=== PATIENT | female | born 1965 | race Caucasian/White ===

== ENCOUNTER 2017-11-30 18:56 | Emergency (ER) | payer OTHER ==
[2017-11-30 19:37] VITALS: TEMP 98.3; BMI 51.5
[2017-11-30 19:45] LABS: PH,URINE 6.5 (4.5-8); URINE APPEARANCE Clear; URINE BILIRUBIN Negative (NEGATIVE); URINE BLOOD Negative (NEGATIVE); URINE GLUCOSE (UA) Negative (NEGATIVE); URINE KETONE Negative (NEGATIVE); URINE LEUK ESTERASE Negative (NEGATIVE); URINE NITRITE Negative (NEGATIVE); URINE PROTEIN Negative (NEGATIVE); URINE UROBILINOGEN 0.2 (0.2-1.0)
[2017-11-30 19:47] LABS: HCG,QUALITATIVE URINE NEGATIVE; URINE COLOR YELLOW
[2017-11-30 19:58] LABS: BASO % 1.6 % (0-2.0); EOS % 0.3 % (0-4.5); HEMATOCRIT 44.3 % (32.4-45.2); HEMOGLOBIN 15.5 GM/dl (10.7-15.3); LYMPH % 24.7 % (8-40); MCH 29.5 pg (25.7-33.7); MCHC 34.9 g/dl (32.0-36.0); MEAN CELL VOLUME 84.4 fl (80-96); MEAN PLT VOLUME 7.9 fl (7.5-11.1); MONO % 6.4 % (3.8-10.2); PLATELET COUNT 290 K/MM3 (134-434); RBC 5.24 M/mm3 (3.60-5.2); RDW 12.6 % (11.6-15.6); WHITE BLOOD COUNT 7.7 K/mm3 (4.0-10.8)
[2017-11-30 20:06] LABS: ACTIVATED PTT 29.3 SECONDS (24.0-38.9)
[2017-11-30 20:10] LABS: ALBUMIN 3.8 g/dl (3.5-5.0); ALK PHOS 62 U/L (32-92); ANION GAP 5 (8-16); BILIRUBIN,TOTAL 0.8 mg/dl (0.2-1.0); BLOOD UREA NITROGEN 6 mg/dl (7-18); CALCIUM 8.7 mg/dl (8.4-10.2); CHLORIDE 102 mmol/L (98-107); CO2 27 mmol/L (22-28); CREATININE 0.8 mg/dl (0.6-1.3); GLUCOSE,RANDOM 121 mg/dl (74-106); POTASSIUM 3.7 mmol/L (3.5-5.1); SGOT/AST 21 U/L (10-42); SGPT/ALT 16 U/L (10-40); SODIUM 134 mmol/L (136-145); TOT PROT 6.9 g/dl (6.4-8.3)
[2017-11-30 20:11] LABS: INR 1.06 (0.82-1.09); PROTHROMBIN TIME (PATIENT) 11.9 SEC (10.2-13.0)
--- NOTE | 2017-11-30 22:42 | PDOC ---
History of Present Illness - General Chief Complaint: Shortness of Breath Stated Complaint: SENT BY PMD ELEVATED DIMER Time Seen by Provider: 11/30/17 19:19 - History of Present Illness Initial Comments: 11/30/17 22:35 "Patient is a year old female with PMHx of fibromyalgia, diverticulosis, ? autoimmune issue, back problems (accident 10 years ago), who presents from her PCP for an elevated d-dimer. Patient reports a plethora of symptoms for the past 2-3 weeks. She states that she first developed a dry cough. She also reports associated chest tightness. Pt also measured a fever of 101 at home. She states that her symptoms come and go. Pt endorses chronic bilateral leg swelling but denies any new asymmetric swelling. Yesterday she saw her doctor who did an EKG which came back normal, some blood tests and was scheduled for a CT chest later in the week. Today, her doctor told her to go to the nearest ER due to her elevated d-dimer results. She denies recent travel, long car/plane rides. Denies OCP use. Denies h/o DVT/ PE. Allerigies: Levaquin, Quinolones. " Past History - Past Medical History Allergies/Adverse Reactions: Allergies Allergy/AdvReac Type Severity Reaction Status Date / Time levofloxacin [From Levaquin] Allergy Verified 11/30/17 19:14 Quinolones Allergy Verified 11/30/17 19:14 Home Medications: Ambulatory Orders Tapentadol Hydrochloride [Nucynta -] 100 mg PO TID 07/17/14 Cetirizine HCl [Zyrtec -] 10 mg PO DAILY 11/30/17 Montelukast Sodium [Singulair] 4 mg PO DAILY 11/30/17 COPD: No GI Disorders: Yes (diverticulitis, acid reflux, PERF TO LARGE INTESTINE) Other medical history: CHRONIC BACK PAIN - Surgical History Cholecystectomy: Yes Neurologic Surgery: Yes (back surgery) - Immunization History Immunization Up to Date: Yes - Suicide/Smoking/Psychosocial Hx Smoking Status: No Smoking History: Never smoked Have you smoked in the past 12 months: No If you are a former smoker, when did you quit?: 15 Information on smoking cessation initiated: No Hx Alcohol Use: No Drug/Substance Use Hx: No Substance Use Type: Alcohol Review of Systems - Review of Systems Comments:: 11/30/17 22:38 GENERAL/CONSTITUTIONAL: + fever, no chills. HEAD, EYES, EARS, NOSE AND THROAT: No change in vision. No ear pain or discharge. + sore throat .(from coughing) CARDIOVASCULAR: + chest pressure, no SOB RESPIRATORY: +cough, no wheezing, or hemoptysis. GASTROINTESTINAL: no vomiting, diarrhea or constipation. GENITOURINARY: No dysuria, frequency, or change in urination. MUSCULOSKELETAL: +BLE swelling. No joint or muscle swelling or pain. No neck or back pain. SKIN: No rash. NEUROLOGIC: No headache, no loss of consciousness, or change in strength/ sensation. ENDOCRINE: No increased thirst. No abnormal weight change. HEMATOLOGIC/LYMPHATIC: No anemia, easy bleeding, or history of blood clots. ALLERGIC/IMMUNOLOGIC: No hives or skin allergy. " *Physical Exam - Vital Signs Last Vital Signs Temp Pulse Resp BP Pulse Ox 98.3 F 108 H 18 134/82 97 11/30/17 19:27 11/30/17 19:27 11/30/17 19:27 11/30/17 19:27 11/30/17 19:27 - Physical Exam Comments: 11/30/17 22:38 "GENERAL: Awake, alert, and fully oriented, in no acute distress. HEAD: No signs of trauma EYES: PERRLA, EOMI, sclera anicteric, conjunctiva clear ENT: Auricles normal inspection, hearing grossly normal, nares patent, oropharynx clear without exudates. Moist mucosa NECK: Nontender, no stepoffs, Normal ROM, supple, no lymphadenopathy, JVD, or masses LUNGS: Breath sounds equal, clear to auscultation bilaterally. No wheezes, and no crackles HEART: Regular rate and rhythm, normal S1 and S2, no murmurs, rubs or gallops ABDOMEN: Soft, nontender, normoactive bowel sounds. No guarding, no rebound. No masses EXTREMITIES: Normal range of motion, no edema. No clubbing or cyanosis. No cords, erythema, or tenderness NEUROLOGICAL: Cranial nerves II through XII intact. 5/5 strength and sensation in all extremities, Normal speech, normal gait, normal cerebellar function SKIN: Warm, Dry, normal turgor, no rashes or lesions noted. " Heart Score/ECG Review - History History: Slightly suspicious - Electrocardiogram EKG: Normal - Age Age: 45-65 - Risk Factors Risk Factors Heart Score: Yes Hx Obesity Based on the list above the patient has:: 1-2 risk factors - Troponin Troponin: </= normal limit - Score Heart Score - Total: 2 - ECG Impressions Comment:: 11/30/17 22:40 NSR, no CARLOS/STDs, no TWIs, axis wnl, intervals wnl, rate 97 ED Treatment Course - LABORATORY CBC & Chemistry Diagram: 11/30/17 19:27 11/30/17 19:27 - ADDITIONAL ORDERS Additional order review: Laboratory Results 11/30/17 11/30/17 11/30/17 19:40 19:40 19:27 PT with INR INR PTT (Actin FS) D-Dimer Sodium Potassium Chloride Carbon Dioxide Anion Gap BUN Creatinine Creat Clearance w eGFR Random Glucose Calcium Total Bilirubin AST ALT Alkaline Phosphatase Creatine Kinase 39 Troponin I < 0.03 Total Protein Albumin Urine Color Yellow Urine Appearance Clear Urine pH 6.5 Ur Specific [place] <= 1.005 Urine Protein Negative Urine Glucose (UA) Negative Urine Ketones Negative Urine Blood Negative Urine Nitrite Negative Urine Bilirubin Negative Urine Urobilinogen 0.2 Ur Leukocyte Esterase Negative Urine HCG, Qual Negative 11/30/17 11/30/17 11/30/17 19:27 19:27 19:27 PT with INR 11.9 INR 1.06 PTT (Actin FS) 29.3 D-Dimer 858 H Sodium 134 L Potassium 3.7 Chloride 102 Carbon Dioxide 27 Anion Gap 5 L BUN 6 L Creatinine 0.8 Creat Clearance w eGFR > 60 Random Glucose 121 H Calcium 8.7 Total Bilirubin 0.8 AST 21 ALT 16 Alkaline Phosphatase 62 Creatine Kinase Troponin I Total Protein 6.9 Albumin 3.8 Urine Color Urine Appearance Urine pH Ur Specific [place] Urine Protein Urine Glucose (UA) Urine Ketones Urine Blood Urine Nitrite Urine Bilirubin Urine Urobilinogen Ur Leukocyte Esterase Urine HCG, Qual 11/30/17 19:27 RBC 5.24 H MCV 84.4 MCHC 34.9 RDW 12.6 MPV 7.9 Neutrophils % 67.0 Lymphocytes % 24.7 Monocytes % 6.4 Eosinophils % 0.3 Basophils % 1.6 - RADIOLOGY Radiology Studies Ordered: Category Date Time Status CHEST CTA [CT] Stat CT Scan 11/30/17 19:38 Completed Medical Decision Making - Medical Decision Making 11/30/17 22:42 52 F with URI-like symptoms x 1 week. Presenting to ED for elevated outpt D dimer. Pt with no clinical signs of DVT. No risk factors for DVT. My suspicion is extremely low for PE. However, will obtain CTA given elevated D dimer. Will also r/o ACS given history of chest tightness. However, - Labs, trop - CTA chest 11/30/17 22:48 CTA negative for PE. Study was limited 2/2 pt's body habitus. However, pt does not clinically have signs of DVT and is low risk for PE. Pt is well appearing, with normal vitals. Clinically stable for DC at this time. I discussed the physical exam findings, ancillary test results and final diagnoses with the patient. I answered all of the patient's questions. The patient was satisfied with the care received and felt comfortable with the discharge plan and treatment plan. The patient agrees to follow up with the primary care physician within 24-72 hours. *DC/Admit/Observation/Transfer Diagnosis at time of Disposition: Cough - Discharge Dispostion Disposition: HOME - Referrals Referrals: Moris Her MD [Staff Physician] - - Patient Instructions Printed Discharge Instructions: DI for Viral Syndrome Additional Instructions: Please follow up with a chemical dependency nurse regarding your symptoms. Even though the labs and EKG were normal today, we cannot rule out all heart disease. You will need a stress test and an echo (ultrasound of your heart). See your primary doctor this week for a follow up appointment. Your CT scan today did not show a blood clot, but it did not completely evaluate all of the vessels in your lungs. If you experience worsening chest pain, shortness of breath, persistent or high fevers, or any other concerning symptoms, return to the ER immediately. Your CT scan today showed a nodule near your trachea. Please have your primary doctor follow up on this. Though it is most likely benign, if it changes in size it may represent a tumor or cancer. - Post Discharge Activity - Attestations Physician Attestion: 11/30/17 22:47 I, Dr. Aramis Boss MD, attest that this document has been prepared under my direction and personally reviewed by me in its entirety. I further attest, that it accurately reflects all work, treatment, procedures and medical decision -making performed by me.
[2017-11-30 22:50] VITALS: BP 131/73; PULSE 100
--- NOTE | 2017-12-01 10:37 | EKG ---
Test Reason : Blood Pressure : / mmHG Vent. Rate : 097 BPM Atrial Rate : 097 BPM P-R Int : 150 ms QRS Dur : 084 ms QT Int : 356 ms P-R-T Axes : 031 -24 004 degrees QTc Int : 452 ms NORMAL SINUS RHYTHM POSSIBLE LEFT ATRIAL ENLARGEMENT BORDERLINE ECG NO PREVIOUS ECGS AVAILABLE Confirmed by ABIEL BARRETO, ROSALIO ([id number]) on 12/01/2017 10:37:41 AM Referred By: DR ORELLANA Confirmed By:ROSALIO BEEBE MD
== END 2017-11-30 22:55 | disposition home or self-care (01) ==
LOC: FER 18:56
DX: R05 Cough (principal); K21.9 Gastro-esophageal reflux disease without esophagitis; K57.90 Diverticulosis of intestine, part unspecified, without perforation or abscess without bleeding; M79.7 Fibromyalgia; F17.210 Nicotine dependence, cigarettes, uncomplicated
CPT/HCPCS: 36415; 71275-TC; 80053; 81003; 82550; 84484; 84703; 85025; 85379; 85610; 85730; 93005; 99282-25

== ENCOUNTER 2019-09-30 01:44 | Inpatient (IN) | payer OTHER ==
--- NOTE | 2019-09-30 02:15 | PDOC ---
Attending Attestation - Resident Resident Name: Junior Carroll - ED Attending Attestation I have performed the following: I have examined & evaluated the patient, The case was reviewed & discussed with the resident, I agree w/resident's findings & plan - HPI HPI: 09/30/19 02:25 R flank pain began today Shes never had this before - Physicial Exam PE: 09/30/19 03:04 Pt has flank and suprapubic pain that began today She has never had a kidney stone, but her sibling has in the past, and kidney stones un in the family. - Medical Decision Making 09/30/19 03:06 Pt has no fever or chills. She will have labs; NSAIDS in the ER hydration reevaluation 09/30/19 06:21 Pt has a colitis and lymphadenopathy; she is allergic to levaquin and quinolones ; she will be treated with unasyn. We will start with a double dose, as she is > 260 lbs
--- NOTE | 2019-09-30 02:24 | PDOC ---
History of Present Illness - General Chief Complaint: Pain, Acute Stated Complaint: ABD PAIN Time Seen by Provider: 09/30/19 02:13 - History of Present Illness Initial Comments: Susie Fry is a 54 year old female with PMHx of fibromyalgia, diverticulosis, autoimmune issue, chronic back pain, presenting today with abdominal pain. Reports that the abdominal pain started at 8:30 this morning. Describes the pain as sharp and constant. Pain is in the right flank and "radiates all over." Reports nausea w/o vomiting. Denies fever/chills. Denies chest pain. Denies shortness of breath. Reports back pain which is chronic. Reports leg swelling which is also chronic. Reports pain on urination at the urethra and in the abdomen. Denies diarrhea/constipation. No blood in the stool or urine. SurgHx: s/p cholecystectomy 09/30/19 06:48 Past History - Past Medical History Allergies/Adverse Reactions: Allergies Allergy/AdvReac Type Severity Reaction Status Date / Time levofloxacin [From Levaquin] Allergy Verified 09/30/19 01:55 Quinolones Allergy Verified 09/30/19 01:55 Home Medications: Ambulatory Orders Tapentadol Hydrochloride [Nucynta -] 100 mg PO TID 07/17/14 Famotidine [Pepcid] 20 mg PO PRN 02/07/18 Tizanidine HCl [Zanaflex (Nf)] 6 mg PO HS 02/07/18 Levocetirizine Dihydrochloride [Xyzal] 5 mg PO DAILY 09/30/19 COPD: No GI Disorders: Yes (diverticulitis, acid reflux, PERF TO LARGE INTESTINE) - Surgical History Cholecystectomy: Yes Neurologic Surgery: Yes (back surgery) - Immunization History Immunization Up to Date: Yes - Psycho Social/Smoking Cessation Hx Smoking Status: No Smoking History: Unknown if ever smoked Have you smoked in the past 12 months: No If you are a former smoker, when did you quit?: 15 Information on smoking cessation initiated: No Hx Alcohol Use: No Drug/Substance Use Hx: No Substance Use Type: Alcohol Review of Systems - Review of Systems Comments:: GENERAL/CONSTITUTIONAL: No fever or chills. No weakness._ HEAD, EYES, EARS, NOSE AND THROAT: No change in vision. No change in hearing. No sore throat._ CARDIOVASCULAR: No chest pain or shortness of breath_ RESPIRATORY: Denies cough, hemoptysis_ GASTROINTESTINAL: Reports nausea. No vomiting/diarrhea/constipation. GENITOURINARY: Reports dysuria. MUSCULOSKELETAL: Reports chronic LE swelling and chronic back pain. SKIN: No rash_ NEUROLOGIC: No headache, vertigo, loss of consciousness, or change in strength/ sensation._ ENDOCRINE: No increased thirst. No abnormal weight change_ HEMATOLOGIC/LYMPHATIC: No anemia, easy bleeding, or history of blood clots._ ALLERGIC/IMMUNOLOGIC: No hives or skin allergy._ *Physical Exam - Vital Signs Last Vital Signs Temp Pulse Resp BP Pulse Ox 97.9 F 85 20 111/66 96 09/30/19 01:55 09/30/19 01:55 09/30/19 01:55 09/30/19 01:55 09/30/19 01:55 - Physical Exam GENERAL: Awake, alert, and oriented to person/place/time, in no acute distress_ HEAD: No signs of trauma, normocephalic, atraumatic _ EYES: PERRLA, EOMI, sclera anicteric, conjunctiva clear_ ENT: Hearing grossly normal, nares patent, oropharynx clear without exudates. No uvular deviation. Moist mucosa_ NECK: Normal ROM, supple, no lymphadenopathy, JVD, or masses_ LUNGS: No distress, speaks in full sentences, clear to auscultation bilaterally _ HEART: Regular rate and rhythm, normal S1 and S2, no murmurs appreciated, peripheral pulses normal and equal bilaterally._ ABDOMEN: Soft, distractable TTP in the right flank and periumbilical area with mild voluntary guarding, normoactive bowel sounds. No rebound, no masses. BACK: No CVA TTP. EXTREMITIES: Normal inspection, Normal range of motion, 2+ pitting edema BLE. No clubbing or cyanosis_ NEUROLOGICAL: Cranial nerves II through XII grossly intact. Normal speech, no focal sensorimotor deficits _ SKIN: Warm, Dry, normal turgor, no rashes or lesions noted_ ED Treatment Course - LABORATORY CBC & Chemistry Diagram: 09/30/19 02:45 09/30/19 02:45 Medical Decision Making - Medical Decision Making 09/30/19 02:44 54F hx of fibromyalgia, chronic back pain, s/p david, presenting today with right sided abdominal and flank pain that started this morning. -cbc, cmp -ua, ucx, upreg -ct spiral -toradol, lidocaine patch -lipase 09/30/19 06:20 CT abd pelv shows mild diverticulitis of the sigmoid colon, mild pericolonic mesenteric edema most likely due to infection, mild hepatomegaly and steatosis, karishma hepatis borderline lymphadenopathy may be reactive to infection. Labs reviewed. Laboratory Last Values WBC 15.7 K/mm3 (4.0-10.0) H 09/30/19 02:45 RBC 4.49 M/mm3 (3.60-5.2) 09/30/19 02:45 Hgb 13.2 GM/dL (10.7-15.3) 09/30/19 02:45 Hct 38.8 % (32.4-45.2) 09/30/19 02:45 MCV 86.4 fl (80-96) 09/30/19 02:45 MCH 29.4 pg (25.7-33.7) 09/30/19 02:45 MCHC 34.1 g/dl (32.0-36.0) 09/30/19 02:45 RDW 13.4 % (11.6-15.6) 09/30/19 02:45 Plt Count 226 K/MM3 (134-434) D 09/30/19 02:45 MPV 8.2 fl (7.5-11.1) D 09/30/19 02:45 Absolute Neuts (auto) 13.7 K/mm3 (1.5-8.0) H 09/30/19 02:45 Neutrophils % 86.7 % (42.8-82.8) H D 09/30/19 02:45 Lymphocytes % 8.4 % (8-40) D 09/30/19 02:45 Monocytes % 4.5 % (3.8-10.2) 09/30/19 02:45 Eosinophils % 0.1 % (0-4.5) 09/30/19 02:45 Basophils % 0.3 % (0-2.0) 09/30/19 02:45 Nucleated RBC % 0 % (0-0) 09/30/19 02:45 Sodium 136 mmol/L (136-145) 09/30/19 02:45 Potassium 4.0 mmol/L (3.5-5.1) 09/30/19 02:45 Chloride 104 mmol/L (98-107) 09/30/19 02:45 Carbon Dioxide 24 mmol/L (21-32) 09/30/19 02:45 Anion Gap 8 MMOL/L (8-16) 09/30/19 02:45 BUN 12.0 mg/dL (7-18) 09/30/19 02:45 Creatinine 1.1 mg/dL (0.55-1.3) 09/30/19 02:45 Est GFR (CKD-EPI)AfAm 65.92 09/30/19 02:45 Est GFR (CKD-EPI)NonAf 56.87 09/30/19 02:45 Random Glucose 114 mg/dL (74-106) H 09/30/19 02:45 Calcium 7.9 mg/dL (8.5-10.1) L 09/30/19 02:45 Total Bilirubin 1.5 mg/dL (0.2-1) H 09/30/19 02:45 AST 16 U/L (15-37) 09/30/19 02:45 ALT 17 U/L (13-61) 09/30/19 02:45 Alkaline Phosphatase 64 U/L (45-117) 09/30/19 02:45 Total Protein 6.6 g/dl (6.4-8.2) 09/30/19 02:45 Albumin 3.2 g/dl (3.4-5.0) L 09/30/19 02:45 Lipase 123 U/L (73-393) 09/30/19 02:45 Plan to start Unasyn for abx coverage. 09/30/19 0700 Pt signed out to Dr. López. Discharge - Discharge Information Problems reviewed: Yes Clinical Impression/Diagnosis: Diverticulitis Abdominal pain Qualifiers: Abdominal location: generalized Qualified Code(s): R10.84 - Generalized abdominal pain Condition: Stable - Admission Yes - Follow up/Referral - Patient Discharge Instructions - Post Discharge Activity
[2019-09-30] MEDS ORDERED: LIDOCAINE 5% TOPICAL PATCH TP ONE (02:28)
[2019-09-30] MEDS ORDERED: KETOROLAC TROMETHAMINE 60 MG/2 ML VIAL IM ONE (02:28)
[2019-09-30] MEDS ORDERED: KETOROLAC TROMETHAMINE 60 MG/2 ML VIAL ONE (02:33)
[2019-09-30] MEDS ORDERED: LIDOCAINE 5% TOPICAL PATCH ONE (02:34)
[2019-09-30] MEDS ORDERED: KETOROLAC TROMETHAMINE 60 MG/2 ML VIAL IVPUSH ONE (02:46)
[2019-09-30 03:00] LABS: BASO % 0.3 % (0-2.0); EOS % 0.1 % (0-4.5); HEMATOCRIT 38.8 % (32.4-45.2); HEMOGLOBIN 13.2 GM/dL (10.7-15.3); LYMPH % 8.4 % (8-40); MCH 29.4 pg (25.7-33.7); MCHC 34.1 g/dl (32.0-36.0); MEAN CELL VOLUME 86.4 fl (80-96); MEAN PLT VOLUME 8.2 fl (7.5-11.1); MONO % 4.5 % (3.8-10.2); NEUT % 86.7 % (42.8-82.8); PLATELET COUNT 226 K/MM3 (134-434); RBC 4.49 M/mm3 (3.60-5.2); RDW 13.4 % (11.6-15.6); WHITE BLOOD COUNT 15.7 K/mm3 (4.0-10.0)
[2019-09-30 03:29] LABS: ALBUMIN 3.2 g/dl (3.4-5.0); BILIRUBIN,TOTAL 1.5 mg/dL (0.2-1); CALCIUM 7.9 mg/dL (8.5-10.1); CREATININE 1.1 mg/dL (0.55-1.3); TOT PROT 6.6 g/dl (6.4-8.2)
[2019-09-30] MEDS ORDERED: ACETAMINOPHEN INJECTION 100 ML IVPB ONE (04:55)
[2019-09-30] MEDS ORDERED: ACETAMINOPHEN 1000 MG/100 ML VIAL (NON FORMULARY) IVPB ONE (04:58)
[2019-09-30] MEDS ORDERED: AMPICILLIN NA/SULBACTAM NA 3 GM in SODIUM CHLORIDE 100 ML IVPB ONE (06:14)
--- NOTE | 2019-09-30 08:01 | PDOC ---
*Physical Exam - Vital Signs Last Vital Signs Temp Pulse Resp BP Pulse Ox 98.0 F 64 17 92/68 96 09/30/19 07:54 09/30/19 07:54 09/30/19 07:54 09/30/19 07:54 09/30/19 07:54 ED Treatment Course - LABORATORY CBC & Chemistry Diagram: 09/30/19 02:45 09/30/19 02:45 - ADDITIONAL ORDERS Additional order review: Laboratory Results 09/30/19 09/30/19 02:45 02:45 Sodium 136 Potassium 4.0 Chloride 104 Carbon Dioxide 24 Anion Gap 8 BUN 12.0 Creatinine 1.1 Est GFR (CKD-EPI)AfAm 65.92 Est GFR (CKD-EPI)NonAf 56.87 Random Glucose 114 H Calcium 7.9 L Total Bilirubin 1.5 H AST 16 ALT 17 Alkaline Phosphatase 64 Total Protein 6.6 Albumin 3.2 L Lipase 123 09/30/19 02:45 RBC 4.49 MCV 86.4 MCHC 34.1 RDW 13.4 MPV 8.2 D Neutrophils % 86.7 H D Lymphocytes % 8.4 D Monocytes % 4.5 Eosinophils % 0.1 Basophils % 0.3 - Medications Given in the ED: ED Medications Discontinued Medications Generic Name Dose Route Start Last Admin Trade Name Freq PRN Reason Stop Dose Admin Acetaminophen 1,000 mg 09/30/19 04:58 09/30/19 05:10 Ofirmev Injection - IVPB 09/30/19 04:59 1,000 mg ONCE ONE Administration Ampicillin Sodium/Sulbactam 100 mls @ 200 mls/hr 09/30/19 06:14 09/30/19 07: 03 Sodium 3 gm/ Sodium Chloride IVPB 09/30/19 06:43 200 mls/hr ONCE ONE Administration Ketorolac Tromethamine 60 mg 09/30/19 02:28 09/30/19 02:52 Toradol Injection - IM 09/30/19 02:29 Not Given ONCE ONE Ketorolac Tromethamine 60 mg 09/30/19 02:46 09/30/19 02:52 Toradol Injection - IVPUSH 09/30/19 02:47 60 mg ONCE ONE Administration Lidocaine 1 patch 09/30/19 02:28 09/30/19 02:52 Lidoderm Patch - TP 09/30/19 02:29 1 patch ONCE ONE Administration Medical Decision Making - Medical Decision Making Patient signed out to me pending admission to hospital from night team for abdominal pain CTAP: Mild diverticulitis of the sigmoid colon. Mild pericolonic mesenteric edema most likely due to infection. - Unasyn started by night team Report given to Dr. Horn - Patient admitted to hospital Discharge - Discharge Information Problems reviewed: Yes Clinical Impression/Diagnosis: Diverticulitis Abdominal pain Qualifiers: Abdominal location: generalized Qualified Code(s): R10.84 - Generalized abdominal pain Condition: Stable - Admission Yes - Follow up/Referral - Patient Discharge Instructions - Post Discharge Activity
[2019-09-30] MEDS ORDERED: CEFTRIAXONE 1,000 MG in DEXTROSE 5%-WATER - 50 ML IVPB ONE (08:04)
[2019-09-30] MEDS ORDERED: MORPHINE SULFATE 2 MG/ML VIAL IM PRN (09:05)
[2019-09-30] MEDS ORDERED: HYDROmorphone HCL CARPU-JECT 2 MG/1 ML DISP.SYRIN IVPB ONE (09:15)
[2019-09-30] MEDS ORDERED: DEXTROSE 5%-0.45% SALINE 1,000 ML IV SCH (09:15)
[2019-09-30] MEDS ORDERED: MORPHINE SULFATE 2 MG/ML VIAL ONE (09:33)
[2019-09-30] MEDS ORDERED: PT OWN MED DRAWER 7, Y5N ONE ×3 (14:36→21:20)
[2019-09-30] MEDS ORDERED: AMPICILLIN NA/SULBACTAM NA 1.5 GM in SODIUM CHLORIDE 100 ML IVPB SCH (15:00)
[2019-09-30] MEDS ORDERED: ACETAMINOPHEN 1000 MG/100 ML VIAL (NON FORMULARY) IVPB PRN (15:38)
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
[2019-09-30] MEDS ORDERED: PIPERACILLIN/TAZOBACTAM 4.5 GM VIAL IVPB ONE ×2 (16:22→20:27)
[2019-09-30] MEDS ORDERED: DEXTROSE 5%-WATER 100 ML IVPB ONE ×2 (16:22→20:27)
[2019-09-30] MEDS: MORPHINE SULFATE 2 MG/ML VIAL IVPUSH PRN ×2 (16:25→21:28)
[2019-09-30] MEDS: PIPERACILLIN/TAZOB 4.5 GM 4.5 GM in DEXTROSE 5%-WATER 100 ML IVPB SCH ×2 (16:28→21:30)
--- NOTE | 2019-09-30 17:27 | HP ---
CHIEF COMPLAINT; Left lower quadrantlower quadrant abdominal pain PCP: HISTORY OF PRESENT ILLNESS:54 year old female with PMHx of fibromyalgia, diverticulosis, autoimmune issue, chronic back pain, presenting today with abdominal pain. Reports that the abdominal pain started this morning. Describes the pain as sharp and constant. Pain is in the right flank and "radiates all over." Reports nausea w/o vomiting. Denies fever/chills. Denies chest pain. Denies shortness of breath. Reports back pain which is chronic. Reports leg swelling which is also chronic. Reports pain on urination at the urethra and in the abdomen. Denies diarrhea/constipation. No blood in the stool or urine. ER course was notable for: (1)Positive for acute diverticulitis on the CAT scan (2) (3) Recent Travel:None PAST MEDICAL HISTORY:Fibromyalgia diverticulosis and chronic back pain PAST SURGICAL HISTORY:None Social History:She denies history of alcohol smoking or drug use Smoking: Alcohol: Drugs: Allergies levofloxacin [From Levaquin] Allergy (Verified 09/30/19 01:55) Quinolones Allergy (Verified 09/30/19 01:55) HOME MEDICATIONS: Home Medications Medication Instructions Recorded Tapentadol Hydrochloride [Nucynta 100 mg PO TID 07/17/14 -] Famotidine [Pepcid] 20 mg PO PRN 02/07/18 Tizanidine HCl [Zanaflex (Nf)] 6 mg PO HS 02/07/18 Levocetirizine Dihydrochloride 5 mg PO DAILY 09/30/19 [Xyzal] REVIEW OF SYSTEMS CONSTITUTIONAL: Absent: fever, chills, diaphoresis, generalized weakness, malaise, loss of appetite, weight change HEENT: Absent: rhinorrhea, nasal congestion, throat pain, throat swelling, difficulty swallowing, mouth swelling, ear pain, eye pain, visual changes CARDIOVASCULAR: Absent: chest pain, syncope, palpitations, irregular heart rate, lightheadedness , peripheral edema RESPIRATORY: Absent: cough, shortness of breath, dyspnea with exertion, orthopnea, wheezing, stridor, hemoptysis GASTROINTESTINAL: Positive abdominal pain GENITOURINARY: Absent: dysuria, frequency, urgency, hesitancy, hematuria, flank pain, genital pain MUSCULOSKELETAL: Absent: myalgia, arthralgia, joint swelling, back pain, neck pain SKIN: Absent: rash, itching, pallor HEMATOLOGIC/IMMUNOLOGIC: Absent: easy bleeding, easy bruising, lymphadenopathy, frequent infections ENDOCRINE: Absent: unexplained weight gain, unexplained weight loss, heat intolerance, cold intolerance NEUROLOGIC: Absent: headache, focal weakness or paresthesias, dizziness, unsteady gait, seizure, mental status changes, bladder or bowel incontinence PSYCHIATRIC: Absent: anxiety, depression, suicidal or homicidal ideation, hallucinations. PHYSICAL EXAMINATION Vital Signs - 24 hr 09/30/19 09/30/19 09/30/19 01:55 07:54 09:04 Temperature 97.9 F 98.0 F Pulse Rate 85 Pulse Rate [ 64 Right] Respiratory 20 17 Rate Blood Pressure 111/66 Blood Pressure 92/68 [Arm] O2 Sat by Pulse 96 96 95 Oximetry (%) 09/30/19 09/30/19 09/30/19 10:11 11:12 11:26 Temperature 98.2 F Pulse Rate 77 Pulse Rate [ 69 Right] Respiratory 20 20 20 Rate Blood Pressure 92/53 L Blood Pressure 90/67 [Arm] O2 Sat by Pulse 94 L 94 L Oximetry (%) 09/30/19 09/30/19 14:48 17:12 Temperature 98.7 F 98 F Pulse Rate 73 88 Pulse Rate [ Right] Respiratory 20 20 Rate Blood Pressure 111/52 L 122/69 Blood Pressure [Arm] O2 Sat by Pulse Oximetry (%) GENERAL: Awake, alert, and fully oriented, in no acute distress. HEAD: Normal with no signs of trauma. EYES: Pupils equal, round and reactive to light, extraocular movements intact, sclera anicteric, conjunctiva clear. No lid lag. EARS, NOSE, THROAT: Ears normal, nares patent, oropharynx clear without exudates. Moist mucous membranes. NECK: Normal range of motion, supple without lymphadenopathy, JVD, or masses. LUNGS: Breath sounds equal, clear to auscultation bilaterally. No wheezes, and no crackles. No accessory muscle use. HEART: Regular rate and rhythm, normal S1 and S2 without murmur, rub or gallop. ABDOMEN: Tender left lower quadrant no rebound tenderness bowel sounds are normal MUSCULOSKELETAL: Normal range of motion at all joints. No bony deformities or tenderness. No CVA tenderness. UPPER EXTREMITIES: 2+ pulses, warm, well-perfused. No cyanosis. No clubbing. No peripheral edema. LOWER EXTREMITIES: 2+ pulses, warm, well-perfused. No calf tenderness. No peripheral edema. NEUROLOGICAL: Cranial nerves II-XII intact. Normal speech. Normal gait. PSYCHIATRIC: Cooperative. Good eye contact. Appropriate mood and affect. SKIN: Warm, dry, normal turgor, no rashes or lesions noted, normal capillary refill. Laboratory Results - last 24 hr 09/30/19 09/30/19 09/30/19 02:45 02:45 02:45 WBC 15.7 H RBC 4.49 Hgb 13.2 Hct 38.8 MCV 86.4 MCH 29.4 MCHC 34.1 RDW 13.4 Plt Count 226 D MPV 8.2 D Absolute Neuts (auto) 13.7 H Neutrophils % 86.7 H D Lymphocytes % 8.4 D Monocytes % 4.5 Eosinophils % 0.1 Basophils % 0.3 Nucleated RBC % 0 Sodium 136 Potassium 4.0 Chloride 104 Carbon Dioxide 24 Anion Gap 8 BUN 12.0 Creatinine 1.1 Est GFR (CKD-EPI)AfAm 65.92 Est GFR (CKD-EPI)NonAf 56.87 Random Glucose 114 H Calcium 7.9 L Total Bilirubin 1.5 H AST 16 ALT 17 Alkaline Phosphatase 64 Total Protein 6.6 Albumin 3.2 L Lipase 123 CAT scan of the abdomen shows CT abd pelv shows mild diverticulitis of the sigmoid colon, mild pericolonic mesenteric edema most likely due to infection, mild hepatomegaly and steatosis, karishma hepatis borderline lymphadenopathy may be reactive to infection. ASSESSMENT/PLAN: 54F hx of fibromyalgia, chronic back pain, s/p david, presenting today with right sided abdominal and flank pain that started this morning. Start n.p.o., IV fluids, IV antibiotics, ID consult, repeat labs in the morning , surgical consult . Chronic back pain will continue her regular medications 2 cm mass left kidney lower pole CallConsult also will order MRI of the kidney rule out allergy reason for the mass Visit type - Emergency Visit Emergency Visit: Yes ED Registration Date: 09/30/19 Care time: The patient presented to the Emergency Department on the above date and was hospitalized for further evaluation of their emergent condition. - New Patient This patient is new to me today: Yes Date on this admission: 09/30/19 - Critical Care Critical Care patient: No
[2019-09-30 17:31] LABS: PH,URINE 5.5 (5.0-8.0); URINE APPEARANCE CLEAR; URINE BILIRUBIN 1+ (NEGATIVE); URINE COLOR DK YELLOW; URINE GLUCOSE (UA) NEGATIVE (NEGATIVE); URINE KETONE TRACE (NEGATIVE); URINE LEUK ESTERASE NEGATIVE (NEGATIVE); URINE NITRITE NEGATIVE (NEGATIVE); URINE PROTEIN NEGATIVE (NEGATIVE); URINE UROBILINOGEN 0.2 mg/dL (0.2-1.0)
[2019-09-30] MEDS: DEXTROSE 5%-0.45% SALINE 1,000 ML IV SCH (17:54)
--- NOTE | 2019-09-30 18:27 | PN ---
Progress Note (short form) - Note Progress Note: ID CONSULT DICTATED
[2019-09-30] MEDS: TAPENTADOL HYDROCHLORIDE 50 MG TABLET PO SCH (21:27)
[2019-09-30] MEDS: FAMOTIDINE 20 MG/50 ML IVPB 20 MG/50 ML MG IVPB SCH (21:29)
[2019-09-30] MEDS: TIZANIDINE HCL 4 MG TABLET PO SCH (21:29)
[2019-09-30] MEDS: ENOXAPARIN NA (PORCINE) 30 MG/0.3 ML DISP.SYRIN SQ SCH (21:29)
[2019-09-30] MEDS ORDERED: LIDOCAINE PATCH REMOVAL MC SCH (22:00)
[2019-09-30] MEDS ORDERED: TAPENTADOL HYDROCHLORIDE 50 MG TABLET PO SCH (22:00)
[2019-10-01] MEDS ORDERED: PIPERACILLIN/TAZOBACTAM 4.5 GM VIAL IVPB ONE ×4 (03:48→20:42)
[2019-10-01] MEDS ORDERED: DEXTROSE 5%-WATER 100 ML IVPB ONE ×4 (03:49→20:42)
[2019-10-01] MEDS: PIPERACILLIN/TAZOB 4.5 GM 4.5 GM in DEXTROSE 5%-WATER 100 ML IVPB SCH ×4 (03:50→21:22)
[2019-10-01] MEDS: TAPENTADOL HYDROCHLORIDE 50 MG TABLET PO SCH ×3 (05:43→21:22)
[2019-10-01] MEDS: MORPHINE SULFATE 2 MG/ML VIAL IVPUSH PRN ×3 (06:57→20:07)
[2019-10-01 08:46] LABS: BASO % 0.4 % (0-2.0); EOS % 0.3 % (0-4.5); HEMATOCRIT 36.8 % (32.4-45.2); HEMOGLOBIN 12.8 GM/dL (10.7-15.3); LYMPH % 6.5 % (8-40); MCH 29.9 pg (25.7-33.7); MCHC 34.8 g/dl (32.0-36.0); MEAN CELL VOLUME 85.9 fl (80-96); MEAN PLT VOLUME 8.1 fl (7.5-11.1); MONO % 3.8 % (3.8-10.2); PLATELET COUNT 220 K/MM3 (134-434); RBC 4.28 M/mm3 (3.60-5.2); RDW 13.2 % (11.6-15.6); WHITE BLOOD COUNT 17.7 K/mm3 (4.0-10.0)
[2019-10-01 08:57] LABS: ALBUMIN 2.9 g/dl (3.4-5.0); BILIRUBIN,TOTAL 1.7 mg/dL (0.2-1); BLOOD UREA NITROGEN 14.3 mg/dL (7-18); CALCIUM 7.5 mg/dL (8.5-10.1); CREATININE 1.2 mg/dL (0.55-1.3); MAGNESIUM 1.5 mg/dL (1.8-2.4); PHOSPHOROUS 1.8 mg/dL (2.5-4.9); POTASSIUM 3.3 mmol/L (3.5-5.1); TOT PROT 6.5 g/dl (6.4-8.2)
[2019-10-01] MEDS ORDERED: MAGNESIUM SULF 50% (8.12 MEQ/2 ML-1 GM VIAL) IVPB ONE (09:10)
[2019-10-01 09:19] LABS: INR 1.36 (0.83-1.09); PROTHROMBIN TIME (PATIENT) 16.1 SEC (9.7-13.0)
[2019-10-01 09:21] LABS: ACTIVATED PTT 37.5 SECONDS (25.2-36.5)
[2019-10-01] MEDS: FAMOTIDINE 20 MG/50 ML IVPB 20 MG/50 ML MG IVPB SCH ×2 (09:37→21:23)
[2019-10-01] MEDS: ENOXAPARIN NA (PORCINE) 30 MG/0.3 ML DISP.SYRIN SQ SCH ×2 (09:40→21:22)
[2019-10-01] MEDS ORDERED: ENOXAPARIN NA (PORCINE) 40 MG/0.4 ML DISP.SYRIN SQ SCH (10:00)
[2019-10-01] MEDS ORDERED: POTASSIUM PHOSPHATE 30 MM in SODIUM CHLORIDE 500 ML IVPB ONE (10:30)
--- NOTE | 2019-10-01 10:40 | PN ---
Progress Note (short form) - Note Progress Note: She still complaining a lot of pain left lower quadrant no fever no chills. She is complaining of back pain which is same she always get it. Vital Signs Period Temp Pulse Resp BP Sys/Kennedy Pulse Ox Last 24 Hr 97.8 F-99.0 F 73-92 20-20 92-124/52-76 94 Head no headache no dizziness Ear nose throat no epistaxis Cardiovascular no chest pain Pulmonary no wheezing no coughing GI Persistent abdominal pain Endocrine no history of diabetes hypothyroidism Neuro no history of stroke Dermatology no history of stroke Locomotor Back pain Rest of review of systems are negative Patient is comfortable HEENT normal Neck supple no JVD Lungs clear no wheezing Abdomen Persistent tenderness left lower quadrant no rebound tenderness bowel sounds are present. Extremities no edema no cyanosis normal pulses Neurologically he is alert awake oriented, nonfocal Skin no rash noted CBC, BMP 10/01/19 08:00 10/01/19 08:00 Assessment and plan 54F hx of fibromyalgia, chronic back pain, s/p david, Was admitted with right sided abdominal and flank pain And diverticulitis on CAT scan Start n.p.o., IV fluids, IV antibiotics, ID consult, repeat labs in the morning , surgical consult . Chronic back pain will continue her regular medications 2 cm mass left kidney lower pole Order MRI of the abdomen to Identify for the mass Visit type - Emergency Visit Emergency Visit: Yes ED Registration Date: 09/30/19 Care time: The patient presented to the Emergency Department on the above date and was hospitalized for further evaluation of their emergent condition. - New Patient This patient is new to me today: No - Critical Care Critical Care patient: No - Discharge Referral Referred to [facility] Med P.C.: No
[2019-10-01] MEDS ORDERED: PT OWN MED DRAWER 7, Y5N ONE ×2 (13:32→20:41)
--- NOTE | 2019-10-01 15:20 | CONS ---
DATE OF CONSULTATION: 09/30/2019 The patient is a 54-year-old female evaluated for acute diverticulitis. The patient presented to the emergency room on September 30, 2019, with complaints of right-sided abdominal pain for 1 day prior to admission. She was evaluated in the emergency room. A CAT scan of the abdomen and pelvis was performed and showed a 2-cm renal mass at the lower pole of the left kidney, as well as scattered diverticula and possible mild sigmoid diverticulitis. She was empirically treated with Unasyn. At the present time, the patient's complains of generalized abdominal pain. She denies any associated nausea, vomiting, or diarrhea. Her course has been complicated by elevated white blood cell count 15.7. She was empirically treated with Unasyn. Past medical history positive for fibromyalgia, gastroesophageal reflux, diverticulosis, chronic low back pain. PAST SURGICAL HISTORY: Status post cholecystectomy. Allergies to FLUOROQUINOLONES. Medications at the present time include Unasyn, Tylenol, ceftriaxone, Lovenox, metronidazole, Pepcid. SOCIAL HISTORY: She resides at home in the community. Former smoker. SYSTEMS REVIEW: Neurologic: No loss of consciousness, seizure activity, or focal weakness. Cardiac: Negative chest pain or palpitations. Respiratory: Negative cough or sputum production. Gastrointestinal: As per HPI. Genitourinary: Negative for urinary tract infection. LABORATORY DATA: White count 15.7, hematocrit 38.8, platelets 226. BUN 12, creatinine 1.1. Liver enzymes normal. Urinalysis negative. Cultures are pending. PHYSICAL EXAMINATION: General: She is awake and alert, she is in no acute distress. Vital Signs: Temperature 98.0. Blood pressure 122/69. Pulse 88, regular. Respirations 20 per minute. Eyes: Sclerae anicteric. Heart Sounds: S1, S2. Lungs: Clear. Abdomen: Positive bowel sounds. There is mild diffuse tenderness bilaterally, more in the left lower quadrant. No rebound or rigidity. Extremities: Negative for edema. IMPRESSION: 1. Abdominal pain syndrome. Rule out acute sigmoid diverticulitis. 2. Leukocytosis. Rule out sepsis secondary to gastrointestinal source. 3. CAT scan evidence of renal mass. 4. FLUOROQUINOLONE allergy. Await cultures. Surgical evaluation. Empiric antibiotic coverage with Zosyn and Flagyl pending sepsis workup. Urology evaluation for possible renal mass. Will follow. Thank you for the kind referral. AD VERDUZCO M.D. [id number]
--- NOTE | 2019-10-01 20:44 | PN ---
Progress Note, Physician History of Present Illness: AWAKE,ALERT IN BED C/O L SIDED ABDOMINAL PAIN AFEBRILE WBC INCREASED BC NO GROWTH - Current Medication List Current Medications: Active Medications Enoxaparin Sodium (Lovenox -) 30 mg SQ BID [facility] Last Admin: 10/01/19 09:40 Dose: 30 mg Metronidazole (Flagyl 500mg Premixed Ivpb -) 500 mg in 100 mls @ 100 mls/hr IVPB Q8H-IV [facility] Last Admin: 10/01/19 18:02 Dose: 100 mls/hr Dextrose/Sodium Chloride (D5-1/2ns -) 1,000 mls @ 125 mls/hr IV ASDIR [facility] Last Admin: 09/30/19 17:54 Dose: 125 mls/hr Famotidine/Sodium Chloride (Pepcid 20 Mg Premixed Ivpb -) 20 mg in 50 mls @ 100 mls/hr IVPB BID [facility] Last Admin: 10/01/19 09:37 Dose: 100 mls/hr Piperacillin Sod/Tazobactam (Sod 4.5 gm/ Dextrose) 100 mls @ 200 mls/hr IVPB Q6H-IV [facility]; Protocol Last Admin: 10/01/19 15:57 Dose: 200 mls/hr Morphine Sulfate (Morphine Sulfate) 2 mg IVPUSH Q4H PRN PRN Reason: Pain Level 7 - 10 BREAKTHROUGH Last Admin: 10/01/19 20:07 Dose: 2 mg Tapentadol (Nucynta -) 100 mg PO TID [facility] Last Admin: 10/01/19 13:35 Dose: 100 mg Tizanidine HCl (Tizanidine Hcl) 4 mg PO HS [facility] Last Admin: 09/30/19 21:29 Dose: 4 mg - Objective Vital Signs: Vital Signs Temperature 99.2 F 10/01/19 14:19 Pulse Rate 73 10/01/19 14:19 Respiratory Rate 20 10/01/19 14:19 Blood Pressure 112/66 10/01/19 14:19 O2 Sat by Pulse Oximetry (%) 94 L 10/01/19 09:00 Constitutional: Yes: No Distress, Obese Cardiovascular: Yes: Regular Rate and Rhythm, S1, S2 Respiratory: No: CTA Bilaterally Gastrointestinal: Yes: Normal Bowel Sounds, Soft, Other (GENERALIZED TENDERNESS TO PALPATION) Labs: CBC, BMP 10/01/19 08:00 10/01/19 08:00 INR, PTT INR 1.36 (0.83-1.09) H 10/01/19 08:00 Assessment/Plan ABDOMINAL PAIN SYNDROME R/O SIGMOID DIVERTICULITIS [id number] RENAL MASS QUINOLONE ALLERGY AWAIT C/S CONTINUE EMPIRIC ZOSYN/ FLAGYL SURGICAL/UROLOGY FOLLOW UP
[2019-10-01] MEDS: TIZANIDINE HCL 4 MG TABLET PO SCH (21:23)
[2019-10-01] MEDS: DEXTROSE 5%-0.45% SALINE 1,000 ML IV SCH (23:17)
[2019-10-02] MEDS: MORPHINE SULFATE 2 MG/ML VIAL IVPUSH PRN ×3 (00:55→08:28)
[2019-10-02] MEDS ORDERED: PIPERACILLIN/TAZOBACTAM 4.5 GM VIAL IVPB ONE ×4 (01:03→20:53)
[2019-10-02] MEDS ORDERED: DEXTROSE 5%-WATER 100 ML IVPB ONE ×4 (01:03→20:53)
[2019-10-02] MEDS: PIPERACILLIN/TAZOB 4.5 GM 4.5 GM in DEXTROSE 5%-WATER 100 ML IVPB SCH ×4 (02:12→21:08)
[2019-10-02] MEDS: TAPENTADOL HYDROCHLORIDE 50 MG TABLET PO SCH ×3 (05:54→21:11)
--- NOTE | 2019-10-02 07:22 | PN ---
Physical Exam: SUBJECTIVE: Patient seen and examined at bed side , no acute events over night , she denies any fever chills , reports slight abdominal apin and back pain , asking for food , will stat her on clear liquid s, Ct scan result discussed with pt. OBJECTIVE: Vital Signs Period Temp Pulse Resp BP Sys/Kennedy Pulse Ox Last 24 Hr 98 F-99.2 F 69-88 20-20 96-122/52-76 94 GENERAL: AAOx3 in NAD HEAD: NC/AT EYES: EOMI, Conjunctiva clear, sclera anicteric ENT: moist mucous membrane NECK: Supple, no JVD LUNGS: CTA B/L, no crackles no wheezing no accessory muscle use. HEART: RRR, normal s1, s2, murmur no M/R/G ABDOMEN: obese Soft, Bilateral Tenderness , +BS 4 Q, no CVA Tenderness LOWER EXTREMITIES: no edema, +2DP pulse, NEUROLOGICAL: No focal deficit. Normal speech. gait not observed. PSYCHIATRIC: Cooperative. Good eye contact. Appropriate mood and affect. SKIN: Warm, dry, Laboratory Results - last 24 hr 10/01/19 10/01/19 10/01/19 08:00 08:00 08:00 WBC 17.7 H RBC 4.28 Hgb 12.8 Hct 36.8 MCV 85.9 MCH 29.9 MCHC 34.8 RDW 13.2 Plt Count 220 MPV 8.1 Absolute Neuts (auto) 15.7 H Neutrophils % 89.0 H Lymphocytes % 6.5 L D Monocytes % 3.8 Eosinophils % 0.3 D Basophils % 0.4 Nucleated RBC % 0 PT with INR 16.10 H INR 1.36 H PTT (Actin FS) 37.5 H Sodium 136 Potassium 3.3 L Chloride 106 Carbon Dioxide 23 Anion Gap 8 BUN 14.3 Creatinine 1.2 Est GFR (CKD-EPI)AfAm 59.33 Est GFR (CKD-EPI)NonAf 51.19 Random Glucose 114 H Calcium 7.5 L Phosphorus 1.8 L Magnesium 1.5 L Total Bilirubin 1.7 H AST 20 ALT 15 Alkaline Phosphatase 73 Total Protein 6.5 Albumin 2.9 L Blood Type Antibody Screen 10/01/19 08:00 WBC RBC Hgb Hct MCV MCH MCHC RDW Plt Count MPV Absolute Neuts (auto) Neutrophils % Lymphocytes % Monocytes % Eosinophils % Basophils % Nucleated RBC % PT with INR INR PTT (Actin FS) Sodium Potassium Chloride Carbon Dioxide Anion Gap BUN Creatinine Est GFR (CKD-EPI)AfAm Est GFR (CKD-EPI)NonAf Random Glucose Calcium Phosphorus Magnesium Total Bilirubin AST ALT Alkaline Phosphatase Total Protein Albumin Blood Type B NEGATIVE Antibody Screen Negative Active Medications Generic Name Dose Route Start Last Admin Trade Name Freq PRN Reason Stop Dose Admin Enoxaparin Sodium 30 mg 09/30/19 22:00 10/01/19 21:22 Lovenox - SQ 30 mg BID [facility]USA Administration Metronidazole 500 mg in 100 mls @ 100 mls/hr 09/30/19 10:00 10/02/19 01:16 Flagyl 500mg Premixed Ivpb - IVPB 100 mls/hr Q8H-IV MUSA Administration Dextrose/Sodium Chloride 1,000 mls @ 125 mls/hr 09/30/19 15:30 10/01/19 23:17 D5-1/2ns - IV 125 mls/hr ASDIR [facility] Administration Famotidine/Sodium Chloride 20 mg in 50 mls @ 100 mls/hr 09/30/19 22:00 10/01/19 21:23 Pepcid 20 Mg Premixed Ivpb - IVPB 100 mls/hr BID [facility] Administration Piperacillin Sod/Tazobactam 100 mls @ 200 mls/hr 09/30/19 16:00 10/02/19 02:12 Sod 4.5 gm/ Dextrose IVPB 200 mls/hr Q6H-IV [facility] Administration Protocol Morphine Sulfate 2 mg 09/30/19 15:43 10/02/19 04:25 Morphine Sulfate IVPUSH 2 mg Q4H PRN Administration Pain Level 7 - 10 BREAKTHROUGH Tapentadol 100 mg 09/30/19 22:00 10/02/19 05:54 Nucynta - PO 100 mg TID [facility] Administration Tizanidine HCl 4 mg 09/30/19 22:00 10/01/19 21:23 Tizanidine Hcl PO 4 mg HS MUSA Administration CBC, BMP 10/02/19 09:25 10/02/19 09:25 ASSESSMENT/PLAN: 54F hx of fibromyalgia, chronic back pain, s/p david, presenting with right sided abdominal and flank pain was found to have sigmoid diverticulotis # Mild sigmoid diverticulitis * CT scan reviowed * pain is improving will start her in clear liquid diet * COnt abx per ID Zosyn and flagyl , WBC trendng downa nd abdominal pain improving * dc iV fluids * pain control * Colonoscopy out pt 6-8 weeks after dc * avoid constipation, # Mass on left kidney * founded on CT sca, consult urology , pt refuse MRI , has family history of cyst per pt , follow up out pt # Periumbilical hernia chronic follow up out pt # Hypocalcemia 6.9 corrected 8.t , replinished # Chronic low back pain cont home meds Tizanidine and Nucynta and ketorlac # Morbid obesity BMO 52 educated about life style change and diet modification # FEN * D5/ /2 NS @ 125 * Monitor lytes * Clear liquid diet # Proph * Lovenox 30 SQ BID * Famotidine # Full code # Dispo: M/S Visit type - Emergency Visit Emergency Visit: Yes ED Registration Date: 09/30/19 Care time: The patient presented to the Emergency Department on the above date and was hospitalized for further evaluation of their emergent condition. - New Patient This patient is new to me today: Yes Date on this admission: 10/02/19 - Critical Care Critical Care patient: No ATTENDING PHYSICIAN STATEMENT I saw and evaluated the patient. I reviewed the resident's note and discussed the case with the resident. I agree with the resident's findings and plan as documented. SUBJECTIVE: OBJECTIVE: ASSESSMENT AND PLAN:
[2019-10-02] MEDS ORDERED: PT OWN MED DRAWER 7, Y5N ONE ×3 (09:03→20:52)
[2019-10-02] MEDS: ENOXAPARIN NA (PORCINE) 30 MG/0.3 ML DISP.SYRIN SQ SCH ×2 (09:15→21:10)
[2019-10-02 09:47] LABS: BASO % 0.3 % (0-2.0); EOS % 2.3 % (0-4.5); HEMATOCRIT 32.3 % (32.4-45.2); HEMOGLOBIN 10.9 GM/dL (10.7-15.3); LYMPH % 9.8 % (8-40); MCH 29.2 pg (25.7-33.7); MCHC 33.8 g/dl (32.0-36.0); MEAN CELL VOLUME 86.5 fl (80-96); MEAN PLT VOLUME 7.9 fl (7.5-11.1); NEUT % 82.6 % (42.8-82.8); PLATELET COUNT 202 K/MM3 (134-434); RBC 3.73 M/mm3 (3.60-5.2); RDW 13.1 % (11.6-15.6); WHITE BLOOD COUNT 12.3 K/mm3 (4.0-10.0)
[2019-10-02 10:11] LABS: ALBUMIN 2.4 g/dl (3.4-5.0); BILIRUBIN,TOTAL 1.1 mg/dL (0.2-1); BLOOD UREA NITROGEN 12.7 mg/dL (7-18); CREATININE 0.9 mg/dL (0.55-1.3); POTASSIUM 3.2 mmol/L (3.5-5.1); TOT PROT 5.4 g/dl (6.4-8.2)
[2019-10-02] MEDS: FAMOTIDINE 20 MG/50 ML IVPB 20 MG/50 ML MG IVPB SCH ×2 (10:59→21:11)
[2019-10-02 11:04] LABS: CALCIUM 6.9 mg/dL (8.5-10.1)
--- NOTE | 2019-10-02 11:25 | PN ---
Teaching Attending Note Name of Resident: Eddie Wolff ATTENDING PHYSICIAN STATEMENT I saw and evaluated the patient. I reviewed the resident's note and discussed the case with the resident. I agree with the resident's findings and plan as documented. SUBJECTIVE: Patient complains of abdominal pain. OBJECTIVE: Vital Signs Period Temp Pulse Resp BP Sys/Kennedy Pulse Ox Last 24 Hr 98.0 F-99.2 F 69-88 20-20 96-122/52-68 HEART: S1S2, RRR LUNGS: Clear ABDOMEN: Obese, soft, non-distended, (+) LLQ/RLQ tenderness, normal BS EXTREMITIES: No edema Laboratory Results - last 24 hr 10/02/19 10/02/19 09:25 09:25 WBC 12.3 H RBC 3.73 Hgb 10.9 Hct 32.3 L MCV 86.5 MCH 29.2 MCHC 33.8 RDW 13.1 Plt Count 202 MPV 7.9 Absolute Neuts (auto) 10.1 H Neutrophils % 82.6 Lymphocytes % 9.8 D Monocytes % 5.0 Eosinophils % 2.3 D Basophils % 0.3 Nucleated RBC % 0 Sodium 136 Potassium 3.2 L Chloride 105 Carbon Dioxide 26 Anion Gap 5 L BUN 12.7 Creatinine 0.9 Est GFR (CKD-EPI)AfAm 84.01 Est GFR (CKD-EPI)NonAf 72.49 Random Glucose 101 Calcium 6.9 L* Total Bilirubin 1.1 H AST 16 ALT 14 Alkaline Phosphatase 63 Total Protein 5.4 L Albumin 2.4 L Current Medications Generic Name Dose Route Start Last Admin Trade Name Freq PRN Reason Stop Dose Admin Enoxaparin Sodium 30 mg 09/30/19 22:00 10/02/19 09:15 Lovenox - SQ 30 mg BID [facility]USA Administration Metronidazole 500 mg in 100 mls @ 100 mls/hr 09/30/19 10:00 10/02/19 09:52 Flagyl 500mg Premixed Ivpb - IVPB 100 mls/hr Q8H-IV [facility] Administration Dextrose/Sodium Chloride 1,000 mls @ 125 mls/hr 09/30/19 15:30 10/01/19 23:17 D5-1/2ns - IV 125 mls/hr ASDIR [facility] Administration Famotidine/Sodium Chloride 20 mg in 50 mls @ 100 mls/hr 09/30/19 22:00 10:59 Pepcid 20 Mg Premixed Ivpb - IVPB 100 mls/hr BID [facility] Administration Piperacillin Sod/Tazobactam 100 mls @ 200 mls/hr 09/30/19 16:00 10/02/19 09: 13 Sod 4.5 gm/ Dextrose IVPB 200 mls/hr Q6H-IV [facility] Administration Protocol Morphine Sulfate 2 mg 09/30/19 15:43 10/02/19 08:28 Morphine Sulfate IVPUSH 2 mg Q4H PRN Administration Pain Level 7 - 10 BREAKTHROUGH Tapentadol 100 mg 09/30/19 22:00 10/02/19 05:54 Nucynta - PO 100 mg TID [facility] Administration Tizanidine HCl 4 mg 09/30/19 22:00 10/01/19 21:23 Tizanidine Hcl PO 4 mg HS MUSA Administration ASSESSMENT AND PLAN: This is a 54 year old woman with a history of fibromyalgia, diverticulosis, chronic back/neck pain who presented to the ED with abdominal pain. 1. Acute sigmoid diverticulitis - Pain, WBC improving - Tolerating clear liquids - Continue Zosyn, Flagyl, IV fluid 2. Left kidney mass - MRI ordered 3. Fibromyalgia, chronic back and neck pain - Continue Nucynta, tizanidine 4. Morbid obesity with BMI 52.1
[2019-10-02] MEDS: KCL 10 MEQ IVPB 10 MEQ/100 ML INFUS.BAG IVPB SCH ×2 (11:51→12:52)
[2019-10-02] MEDS ORDERED: CALCIUM GLUCONATE 10% - 1,000 MG/10 ML VIAL IVPB ONE (12:00)
[2019-10-02] MEDS: KETOROLAC TROMETHAMINE 10 MG TABLET PO SCH ×3 (12:50→23:04)
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
--- NOTE | 2019-10-02 15:47 | PN ---
Progress Note, Physician History of Present Illness: AWAKE,ALERT IN BED C/O BILATERAL ABDOMINAL PAIN AFEBRILE WBC IMPROVED BC NO GROWTH - Current Medication List Current Medications: Active Medications Enoxaparin Sodium (Lovenox -) 30 mg SQ BID [facility] Last Admin: 10/02/19 09:15 Dose: 30 mg Metronidazole (Flagyl 500mg Premixed Ivpb -) 500 mg in 100 mls @ 100 mls/hr IVPB Q8H-IV [facility] Last Admin: 10/02/19 09:52 Dose: 100 mls/hr Dextrose/Sodium Chloride (D5-1/2ns -) 1,000 mls @ 125 mls/hr IV ASDIR [facility] Last Admin: 10/01/19 23:17 Dose: 125 mls/hr Famotidine/Sodium Chloride (Pepcid 20 Mg Premixed Ivpb -) 20 mg in 50 mls @ 100 mls/hr IVPB BID [facility] Last Admin: 10/02/19 10:59 Dose: 100 mls/hr Piperacillin Sod/Tazobactam (Sod 4.5 gm/ Dextrose) 100 mls @ 200 mls/hr IVPB Q6H-IV MUSA; Protocol Last Admin: 10/02/19 15:29 Dose: 200 mls/hr Ketorolac Tromethamine (Toradol) 10 mg PO Q6HPO [facility] Stop: 10/07/19 11:59 Last Admin: 10/02/19 12:50 Dose: 10 mg Tapentadol (Nucynta -) 100 mg PO TID [facility] Last Admin: 10/02/19 13:45 Dose: 100 mg Tizanidine HCl (Tizanidine Hcl) 4 mg PO HS [facility] Last Admin: 10/01/19 21:23 Dose: 4 mg - Objective Vital Signs: Vital Signs Temperature 99.1 F 10/02/19 14:00 Pulse Rate 88 10/02/19 14:00 Respiratory Rate 20 10/02/19 14:00 Blood Pressure 91/64 10/02/19 14:00 O2 Sat by Pulse Oximetry (%) 94 L 10/01/19 09:00 Constitutional: Yes: No Distress, Obese Eyes: Yes: Conjunctiva Clear Cardiovascular: Yes: Regular Rate and Rhythm, S1, S2 Respiratory: Yes: CTA Bilaterally Gastrointestinal: Yes: Normal Bowel Sounds, Soft, Abdomen, Obese, Tenderness Edema: Yes Labs: CBC, BMP 10/02/19 09:25 10/02/19 09:25 INR, PTT INR 1.36 (0.83-1.09) H 10/01/19 08:00 Assessment/Plan ABDOMINAL PAIN SYNDROME SIGMOID DIVERTICULITIS [id number] IMPROVED RENAL MASS QUINOLONE ALLERGY CONTINUE EMPIRIC ZOSYN/ FLAGYL SURGICAL/UROLOGY FOLLOW UP
--- NOTE | 2019-10-02 16:05 | PN ---
Progress Note, Physician History of Present Illness: Pt with mid-sigmoid diverticulitis, also chronic pain issues, on antibiotics per ID. She is seen and examined in bed. Reports feeling a little better, pain is less but still present, now mostly on right side, upper and lower. She notes a tender point around left ischium. Has ambulated in room and sat up in chair frequently. Voiding, had BMs, both loose and not so loose. Was started on clears for lunch, tolerating. WBC coming down, no fevers but T99.1, no nausea. Back on her home pain meds, also now with prn PO toradol. - Current Medication List Current Medications: Active Medications Enoxaparin Sodium (Lovenox -) 30 mg SQ BID [facility] Last Admin: 10/02/19 09:15 Dose: 30 mg Metronidazole (Flagyl 500mg Premixed Ivpb -) 500 mg in 100 mls @ 100 mls/hr IVPB Q8H-IV [facility] Last Admin: 10/02/19 09:52 Dose: 100 mls/hr Dextrose/Sodium Chloride (D5-1/2ns -) 1,000 mls @ 125 mls/hr IV ASDIR [facility] Last Admin: 10/01/19 23:17 Dose: 125 mls/hr Famotidine/Sodium Chloride (Pepcid 20 Mg Premixed Ivpb -) 20 mg in 50 mls @ 100 mls/hr IVPB BID [facility] Last Admin: 10/02/19 10:59 Dose: 100 mls/hr Piperacillin Sod/Tazobactam (Sod 4.5 gm/ Dextrose) 100 mls @ 200 mls/hr IVPB Q6H-IV [facility]; Protocol Last Admin: 10/02/19 15:29 Dose: 200 mls/hr Ketorolac Tromethamine (Toradol) 10 mg PO Q6HPO [facility] Stop: 10/07/19 11:59 Last Admin: 10/02/19 12:50 Dose: 10 mg Tapentadol (Nucynta -) 100 mg PO TID [facility] Last Admin: 10/02/19 13:45 Dose: 100 mg Tizanidine HCl (Tizanidine Hcl) 4 mg PO HS [facility] Last Admin: 10/01/19 21:23 Dose: 4 mg - Objective Vital Signs: Vital Signs Temperature 99.1 F 03/02/20 14:00 Pulse Rate 88 10/02/19 14:00 Respiratory Rate 20 10/02/19 14:00 Blood Pressure 91/64 10/02/19 14:00 O2 Sat by Pulse Oximetry (%) 94 L 10/01/19 09:00 Constitutional: Yes: No Distress, Calm, Obese Eyes: Yes: Conjunctiva Clear, EOM Intact HENT: Yes: Atraumatic, Normocephalic Gastrointestinal: Yes: Soft, Abdomen, Obese, Hernia (umbilical (fat content)), Tenderness (mainly RUQ/RLQ/whole right side of abdomen; much less LLQ/ suprapubic than yesterday, none in LUQ). No: Tenderness, Rebound Extremities: No: Cool, Cyanosis Integumentary: No: Jaundice, Rash Neurological: Yes: Alert, Oriented Labs: CBC, BMP 10/02/19 09:25 10/02/19 09:25 CMP Sodium 136 mmol/L (136-145) 10/02/19 09:25 Potassium 3.2 mmol/L (3.5-5.1) L 10/02/19 09:25 Chloride 105 mmol/L (98-107) 10/02/19 09:25 Carbon Dioxide 26 mmol/L (21-32) 10/02/19 09:25 Anion Gap 5 MMOL/L (8-16) L 10/02/19 09:25 BUN 12.7 mg/dL (7-18) 10/02/19 09:25 Creatinine 0.9 mg/dL (0.55-1.3) 10/02/19 09:25 Est GFR (CKD-EPI)AfAm 84.01 10/02/19 09:25 Est GFR (CKD-EPI)NonAf 72.49 10/02/19 09:25 Random Glucose 101 mg/dL (74-106) 10/02/19 09:25 Calcium 6.9 mg/dL (8.5-10.1) L* 10/02/19 09:25 Phosphorus 1.8 mg/dL (2.5-4.9) L 10/01/19 08:00 Magnesium 1.5 mg/dL (1.8-2.4) L 10/01/19 08:00 Total Bilirubin 1.1 mg/dL (0.2-1) H 10/02/19 09:25 AST 16 U/L (15-37) 10/02/19 09:25 ALT 14 U/L (13-61) 10/02/19 09:25 Alkaline Phosphatase 63 U/L (45-117) 10/02/19 09:25 Total Protein 5.4 g/dl (6.4-8.2) L 10/02/19 09:25 Albumin 2.4 g/dl (3.4-5.0) L 10/02/19 09:25 Lipase 123 U/L (73-393) 09/30/19 02:45 KPhos and Mag repleted yesterday, K still low corrected Ca still a bit low - repleted today Microbiology 09/30/19 15:30 Urine Culture - Final Urine - Urine Clean Catch NO GROWTH OBTAINED 09/30/19 19:20 Blood Culture - Preliminary Blood - Peripheral Venous NO GROWTH OBTAINED AFTER 24 HOURS, INCUBATION TO CONTINUE FOR 4 DAYS. 09/30/19 19:30 Blood Culture - Preliminary Blood - Peripheral Venous NO GROWTH OBTAINED AFTER 24 HOURS, INCUBATION TO CONTINUE FOR 4 DAYS. Problem List - Problems (1) Diverticulitis large intestine w/o perforation or abscess w/o bleeding Assessment/Plan: admitted to medicine still very tender on right side, though pain improved wbc down tolerating clears, but if pain increases at all, she should stop and stay NPO except meds continue IV antibiotics per ID - discussed with Dr. Fatima GI/DVT prophylaxis pain meds as at home and prn trend labs no current need for surgical intervention pt will need colonoscopy 6-8 weeks after resolution of this episode Code(s): K57.32 - DVTRCLI OF LG INT W/O PERFORATION OR ABSCESS W/O BLEEDING (2) Generalized abdominal pain Code(s): R10.84 - GENERALIZED ABDOMINAL PAIN (3) Nausea and vomiting Assessment/Plan: resolved Code(s): R11.2 - NAUSEA WITH VOMITING, UNSPECIFIED Qualifiers: Vomiting type: unspecified Vomiting Intractability: non-intractable Qualified Code(s): R11.2 - Nausea with vomiting, unspecified (4) Chronic low back pain Code(s): M54.5 - LOW BACK PAIN; G89.29 - OTHER CHRONIC PAIN Qualifiers: Back pain laterality: midline Sciatica presence: with sciatica Sciatica laterality: sciatica laterality unspecified Qualified Code(s): M54.40 - Lumbago with sciatica, unspecified side; G89.29 - Other chronic pain (5) Mass of left kidney Assessment/Plan: pending MRI w/contrast the ring she cannot get off of her right hand she believes is gold and is likely nonferrous/nonmagnetic once confirmed, should be able to get MRI for urology L lower pole renal mass is visible on CTs from 2009, but was smaller then Code(s): N28.89 - OTHER SPECIFIED DISORDERS OF KIDNEY AND URETER (6) Morbid obesity with body mass index of 50.0-59.9 in adult Code(s): E66.01 - MORBID (SEVERE) OBESITY DUE TO EXCESS CALORIES; Z68.43 - BODY MASS INDEX (BMI) 50.0-59.9, ADULT
[2019-10-02] MEDS: DEXTROSE 5%-0.45% SALINE 1,000 ML IV SCH ×2 (18:53)
[2019-10-02] MEDS ORDERED: ACETAMINOPHEN 325 MG TABLET (FP) PO ONE (20:02)
[2019-10-02] MEDS: TIZANIDINE HCL 4 MG TABLET PO SCH (21:11)
[2019-10-03] MEDS ORDERED: PIPERACILLIN/TAZOBACTAM 4.5 GM VIAL IVPB ONE ×4 (00:56→20:53)
[2019-10-03] MEDS ORDERED: DEXTROSE 5%-WATER 100 ML IVPB ONE ×4 (00:57→20:53)
[2019-10-03] MEDS: PIPERACILLIN/TAZOB 4.5 GM 4.5 GM in DEXTROSE 5%-WATER 100 ML IVPB SCH ×4 (02:29→21:36)
[2019-10-03] MEDS: TAPENTADOL HYDROCHLORIDE 50 MG TABLET PO SCH ×5 (05:02→21:36)
[2019-10-03] MEDS: KETOROLAC TROMETHAMINE 10 MG TABLET PO SCH ×4 (05:02→23:10)
--- NOTE | 2019-10-03 06:14 | PN ---
Physical Exam: SUBJECTIVE: Patient seen and examined at bed side , no acute events over night , she denies any fever chills , reports slight abdominal apin and back pain , asking for food , will advance to soft , Ct scan result discussed with pt. electrolytes replinished claritin added per pt request OBJECTIVE: Vital Signs Period Temp Pulse Resp BP Sys/Kennedy Pulse Ox Last 24 Hr 97.8 F-99.1 F 62-88 20-20 90-110/53-79 95 GENERAL: AAOx3 in NAD HEAD: NC/AT EYES: EOMI, Conjunctiva clear, sclera anicteric ENT: moist mucous membrane NECK: Supple, no JVD LUNGS: CTA B/L, no crackles no wheezing no accessory muscle use. HEART: RRR, normal s1, s2, murmur no M/R/G ABDOMEN: obese Soft, Bilateral Tenderness , +BS 4 Q, no CVA Tenderness LOWER EXTREMITIES: no edema, +2DP pulse, NEUROLOGICAL: No focal deficit. Normal speech. gait not observed. PSYCHIATRIC: Cooperative. Good eye contact. Appropriate mood and affect. SKIN: Warm, dry, Laboratory Results - last 24 hr 10/02/19 10/02/19 09:25 09:25 WBC 12.3 H RBC 3.73 Hgb 10.9 Hct 32.3 L MCV 86.5 MCH 29.2 MCHC 33.8 RDW 13.1 Plt Count 202 MPV 7.9 Absolute Neuts (auto) 10.1 H Neutrophils % 82.6 Lymphocytes % 9.8 D Monocytes % 5.0 Eosinophils % 2.3 D Basophils % 0.3 Nucleated RBC % 0 Sodium 136 Potassium 3.2 L Chloride 105 Carbon Dioxide 26 Anion Gap 5 L BUN 12.7 Creatinine 0.9 Est GFR (CKD-EPI)AfAm 84.01 Est GFR (CKD-EPI)NonAf 72.49 Random Glucose 101 Calcium 6.9 L* Total Bilirubin 1.1 H AST 16 ALT 14 Alkaline Phosphatase 63 Total Protein 5.4 L Albumin 2.4 L Active Medications Generic Name Dose Route Start Last Admin Trade Name Freq PRN Reason Stop Dose Admin Enoxaparin Sodium 30 mg 09/30/19 22:00 10/02/19 21:10 Lovenox - SQ 30 mg BID [facility] Administration Metronidazole 500 mg in 100 mls @ 100 mls/hr 09/30/19 10:00 10/03/19 02:29 Flagyl 500mg Premixed Ivpb - IVPB 100 mls/hr Q8H-IV [facility] Administration Dextrose/Sodium Chloride 1,000 mls @ 125 mls/hr 09/30/19 15:30 10/02/19 18:53 D5-1/2ns - IV 125 mls/hr ASDIR [facility] Administration Famotidine/Sodium Chloride 20 mg in 50 mls @ 100 mls/hr 09/30/19 22:00 21:11 Pepcid 20 Mg Premixed Ivpb - IVPB 100 mls/hr BID [facility] Administration Piperacillin Sod/Tazobactam 100 mls @ 200 mls/hr 09/30/19 16:00 10/03/19 02: 29 Sod 4.5 gm/ Dextrose IVPB 200 mls/hr Q6H-IV [facility] Administration Protocol Ketorolac Tromethamine 10 mg 10/02/19 12:00 10/03/19 05:02 Toradol PO 10/07/19 11:59 10 mg Q6HPO [facility] Administration Tapentadol 100 mg 09/30/19 22:00 10/03/19 05:02 Nucynta - PO 100 mg TID [facility] Administration Tizanidine HCl 4 mg 09/30/19 22:00 10/02/19 21:11 Tizanidine Hcl PO 4 mg HS [facility] Administration CBC, BMP 10/03/19 07:40 10/03/19 07:40 ASSESSMENT/PLAN: 54F hx of fibromyalgia, chronic back pain, s/p david, presenting with right sided abdominal and flank pain was found to have sigmoid diverticulotis # Mild sigmoid diverticulitis * CT scan reviowed * pain is improving will start her in clear liquid diet * COnt abx per ID Zosyn and flagyl , WBC trendng downa nd abdominal pain improving * dc iV fluids * pain control * Colonoscopy out pt 6-8 weeks after dc * avoid constipation, # Mass on left kidney * founded on CT sca, consult urology , pt refuse MRI , has family history of cyst per pt , follow up out pt # Periumbilical hernia chronic follow up out pt # Hypocalcemia 6.9 corrected 8.t , replinished # Anemia normocytic normochromic , follow up out pt no active bleeding , monitor H/H daily # Chronic low back pain cont home meds Tizanidine and Nucynta and ketorlac # Morbid obesity BMO 52 educated about life style change and diet modification # FEN * D5/ 1/2 NS @ 125 * Monitor lytes * Clear liquid diet # Proph * Lovenox 30 SQ BID * Famotidine # Full code # Dispo: M/S Visit type - Emergency Visit Emergency Visit: Yes ED Registration Date: 09/30/19 Care time: The patient presented to the Emergency Department on the above date and was hospitalized for further evaluation of their emergent condition. - New Patient This patient is new to me today: No - Critical Care Critical Care patient: No - Discharge Referral Referred to [facility] Med P.C[facility] No ATTENDING PHYSICIAN STATEMENT I saw and evaluated the patient. I reviewed the resident's note and discussed the case with the resident. I agree with the resident's findings and plan as documented. SUBJECTIVE: OBJECTIVE: ASSESSMENT AND PLAN:
[2019-10-03 08:32] LABS: BASO % 0.4 % (0-2.0); EOS % 3.2 % (0-4.5); HEMATOCRIT 30.1 % (32.4-45.2); HEMOGLOBIN 10.3 GM/dL (10.7-15.3); LYMPH % 6.2 % (8-40); MCH 29.9 pg (25.7-33.7); MCHC 34.3 g/dl (32.0-36.0); MEAN CELL VOLUME 87.2 fl (80-96); MEAN PLT VOLUME 8.4 fl (7.5-11.1); MONO % 5.3 % (3.8-10.2); NEUT % 84.9 % (42.8-82.8); PLATELET COUNT 213 K/MM3 (134-434); RBC 3.45 M/mm3 (3.60-5.2); RDW 13.3 % (11.6-15.6)
[2019-10-03 08:50] LABS: ALBUMIN 2.3 g/dl (3.4-5.0); BILIRUBIN,TOTAL 0.9 mg/dL (0.2-1); BLOOD UREA NITROGEN 11.5 mg/dL (7-18); CALCIUM 7.6 mg/dL (8.5-10.1); MAGNESIUM 2.2 mg/dL (1.8-2.4); PHOSPHOROUS 2.2 mg/dL (2.5-4.9); POTASSIUM 3.3 mmol/L (3.5-5.1); TOT PROT 5.4 g/dl (6.4-8.2)
[2019-10-03] MEDS ORDERED: POTASSIUM PHOSPHATE 30 MM in DEXTROSE 5%-WATER - 500 ML IVPB ONE (09:03)
[2019-10-03] MEDS: ENOXAPARIN NA (PORCINE) 30 MG/0.3 ML DISP.SYRIN SQ SCH ×2 (09:37→21:36)
[2019-10-03] MEDS ORDERED: PT OWN MED DRAWER 7, Y5N ONE ×4 (09:48→20:52)
[2019-10-03] MEDS: FAMOTIDINE 20 MG/50 ML IVPB 20 MG/50 ML MG IVPB SCH ×2 (10:53→21:39)
[2019-10-03] MEDS: TIZANIDINE HCL 4 MG TABLET PO SCH ×2 (11:01→21:38)
[2019-10-03] MEDS: CALCIUM 500MG/VIT-D 200 UNITS COMBO TABLET (FP) PO SCH (11:56)
[2019-10-03 15:26] VITALS: BMI 52.8
[2019-10-03] MEDS: DEXTROSE 5%-0.45% SALINE 1,000 ML IV SCH (15:43)
[2019-10-03] MEDS: LORATADINE 10 MG TABLET PO SCH (15:50)
[2019-10-03] MEDS ORDERED: ACETAMINOPHEN 500 MG TABLET (FP) PO PRN (17:56)
[2019-10-03] MEDS ORDERED: SODIUM CHLORIDE 0.45%/POT 20 MEQ/1,000 ML INFUS.BAG IV SCH (18:00)
--- NOTE | 2019-10-03 18:03 | PN ---
Progress Note, Physician History of Present Illness: Pt with mid-sigmoid diverticulitis, also chronic pain issues, on antibiotics per ID. She is seen and examined sitting up in chair. Reports feeling less pain, particularly in right side, though still a bit tender RLQ, but has felt dull, bloating pain in abdomen. Overall a bit better. She has been OOB more than in, and has had a hard time lying down because of pain, attributed to the bed mainly. Chair is ok for sitting, but only for so long... Tolerated soft diet for lunch, no nausea, no fevers. Voiding, having BMs, somewhat loose but with some solid components. WBC down to normal. KPhos being repleted. Pt reports discussing NSAIDs with her pain specialist and having been told she should not take them. Requested probiotic while on antibiotics. - Current Medication List Current Medications: Active Medications Acetaminophen (Tylenol -) 1,000 mg PO Q6H PRN PRN Reason: Pain Level 4 - 10 Calcium Carbonate/Cholecalciferol (Os-Patrick 500+D -) 2 tab PO DAILY [facility] Last Admin: 10/03/19 11:56 Dose: 2 tab Enoxaparin Sodium (Lovenox -) 30 mg SQ BID [facility] Last Admin: 10/03/19 09:37 Dose: 30 mg Metronidazole (Flagyl 500mg Premixed Ivpb -) 500 mg in 100 mls @ 100 mls/hr IVPB Q8H-IV [facility] Last Admin: 10/03/19 09:37 Dose: 100 mls/hr Famotidine/Sodium Chloride (Pepcid 20 Mg Premixed Ivpb -) 20 mg in 50 mls @ 100 mls/hr IVPB BID [facility] Last Admin: 10/03/19 10:53 Dose: 100 mls/hr Piperacillin Sod/Tazobactam (Sod 4.5 gm/ Dextrose) 100 mls @ 200 mls/hr IVPB Q6H-IV [facility]; Protocol Last Admin: 10/03/19 14:24 Dose: 200 mls/hr Potassium Chloride/Sodium Chloride (1/2ns+20meq Kcl) 20 meq in 1,000 mls @ 75 mls/hr IV ASDIR [facility] Ketorolac Tromethamine (Toradol) 10 mg PO Q6HPO [facility] Stop: 10/07/19 11:59 Last Admin: 10/03/19 17:55 Dose: 10 mg Lactobacillus Acidophilus (Bacid -) 1 tab PO DAILY [facility] Loratadine (Claritin -) 10 mg PO DAILY [facility] Last Admin: 10/03/19 15:50 Dose: 10 mg Tapentadol (Nucynta -) 100 mg PO QID [facility] Last Admin: 10/03/19 17:02 Dose: 100 mg Tizanidine HCl (Tizanidine Hcl) 4 mg PO BID [facility] Last Admin: 10/03/19 11:01 Dose: 4 mg - Objective Vital Signs: Vital Signs Temperature 98 F 10/03/19 17:11 Pulse Rate 79 10/03/19 17:11 Respiratory Rate 20 10/03/19 17:11 Blood Pressure 96/67 10/03/19 17:11 O2 Sat by Pulse Oximetry (%) 95 10/02/19 21:00 Constitutional: Yes: No Distress, Calm, Obese Eyes: Yes: Conjunctiva Clear, EOM Intact HENT: Yes: Atraumatic, Normocephalic Gastrointestinal: Yes: Soft, Abdomen, Obese, Hernia (umbilical, chronic), Tenderness (RLQ, less than yesterday, not in RUQ anymore, mild epigastric, no rebound or guarding), Tenderness, Epigastrium (mild) Musculoskeletal: No: Joint Stiffness, Joint Swelling Extremities: No: Cool, Cyanosis Integumentary: No: Jaundice, Rash Neurological: Yes: Alert, Oriented Labs: CBC, BMP 10/03/19 07:40 10/03/19 07:40 CMP Sodium 134 mmol/L (136-145) L 10/03/19 07:40 Potassium 3.3 mmol/L (3.5-5.1) L 10/03/19 07:40 Chloride 101 mmol/L (98-107) 10/03/19 07:40 Carbon Dioxide 26 mmol/L (21-32) 10/03/19 07:40 Anion Gap 7 MMOL/L (8-16) L 10/03/19 07:40 BUN 11.5 mg/dL (7-18) 10/03/19 07:40 Creatinine 1.0 mg/dL (0.55-1.3) 10/03/19 07:40 Est GFR (CKD-EPI)AfAm 73.97 10/03/19 07:40 Est GFR (CKD-EPI)NonAf 63.82 10/03/19 07:40 Random Glucose 124 mg/dL (74-106) H 10/03/19 07:40 Calcium 7.6 mg/dL (8.5-10.1) L 10/03/19 07:40 Phosphorus 2.2 mg/dL (2.5-4.9) L 10/03/19 07:40 Magnesium 2.2 mg/dL (1.8-2.4) 10/03/19 07:40 Total Bilirubin 0.9 mg/dL (0.2-1) 10/03/19 07:40 AST 21 U/L (15-37) 10/03/19 07:40 ALT 15 U/L (13-61) 10/03/19 07:40 Alkaline Phosphatase 66 U/L (45-117) 10/03/19 07:40 Total Protein 5.4 g/dl (6.4-8.2) L 10/03/19 07:40 Albumin 2.3 g/dl (3.4-5.0) L 10/03/19 07:40 Lipase 123 U/L (73-393) 09/30/19 02:45 [facility] repleting Ca improved wbc down to normal Problem List - Problems (1) Diverticulitis large intestine w/o perforation or abscess w/o bleeding Assessment/Plan: admitted to medicine less tender - mainly RLQ but much less, and some epigastric with subjective bloating, hard to evaluate for distention secondary to habitus wbc down to normal, no fevers tolerating soft diet - ok to continue for now, but if pain recurs or worsens, needs to stop continue IV antibiotics per ID - will need to determine duration of abx course and oral choice when time to switch GI/DVT prophylaxis pain meds as at home and prn - would stop PO Toradol - added Tylenol as an option trend labs added bacid to meds 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 Carson Code(s): K57.32 - DVTRCLI OF LG INT W/O PERFORATION OR ABSCESS W/O BLEEDING (2) Generalized abdominal pain Code(s): R10.84 - GENERALIZED ABDOMINAL PAIN (3) Chronic low back pain Code(s): M54.5 - LOW BACK PAIN; G89.29 - OTHER CHRONIC PAIN Qualifiers: Back pain laterality: midline Sciatica presence: with sciatica Sciatica laterality: sciatica laterality unspecified Qualified Code(s): M54.40 - Lumbago with sciatica, unspecified side; G89.29 - Other chronic pain (4) Mass of left kidney Assessment/Plan: pending MRI w/contrast per notes, pt refuses scan at this time plan for outpt followup L lower pole renal mass is visible on CTs from 2009, but was smaller then Code(s): N28.89 - OTHER SPECIFIED DISORDERS OF KIDNEY AND URETER (5) Morbid obesity with body mass index of 50.0-59.9 in adult Code(s): E66.01 - MORBID (SEVERE) OBESITY DUE TO EXCESS CALORIES; Z68.43 - BODY MASS INDEX (BMI) 50.0-59.9, ADULT
--- NOTE | 2019-10-03 22:50 | PN ---
Progress Note, Physician History of Present Illness: AWAKE,ALERT OOB IN CHAIR TOLERATING FULL LIQUIDS REPORTS LESS ABDOMINAL PAIN AFEBRILE WBC IMPROVED BC NO GROWTH - Current Medication List Current Medications: Active Medications Acetaminophen (Tylenol -) 1,000 mg PO Q6H PRN PRN Reason: Pain Level 4 - 10 Calcium Carbonate/Cholecalciferol (Os-Patrick 500+D -) 2 tab PO DAILY [facility] Last Admin: 10/03/19 11:56 Dose: 2 tab Enoxaparin Sodium (Lovenox -) 30 mg SQ BID [facility] Last Admin: 10/03/19 21:36 Dose: 30 mg Metronidazole (Flagyl 500mg Premixed Ivpb -) 500 mg in 100 mls @ 100 mls/hr IVPB Q8H-IV [facility] Last Admin: 10/03/19 18:43 Dose: 100 mls/hr Famotidine/Sodium Chloride (Pepcid 20 Mg Premixed Ivpb -) 20 mg in 50 mls @ 100 mls/hr IVPB BID [facility] Last Admin: 10/03/19 21:39 Dose: 100 mls/hr Piperacillin Sod/Tazobactam (Sod 4.5 gm/ Dextrose) 100 mls @ 200 mls/hr IVPB Q6H-IV [facility]; Protocol Last Admin: 10/03/19 21:36 Dose: 200 mls/hr Potassium Chloride/Sodium Chloride (1/2ns+20meq Kcl) 20 meq in 1,000 mls @ 75 mls/hr IV ASDIR [facility] Last Admin: 10/03/19 18:22 Dose: 75 mls/hr Ketorolac Tromethamine (Toradol) 10 mg PO Q6HPO [facility] Stop: 10/07/19 11:59 Last Admin: 10/03/19 17:55 Dose: 10 mg Lactobacillus Acidophilus (Bacid -) 1 tab PO DAILY [facility] Loratadine (Claritin -) 10 mg PO DAILY [facility] Last Admin: 10/03/19 15:50 Dose: 10 mg Tapentadol (Nucynta -) 100 mg PO QID [facility] Last Admin: 10/03/19 21:36 Dose: 100 mg Tizanidine HCl (Tizanidine Hcl) 4 mg PO BID [facility] Last Admin: 10/03/19 21:38 Dose: 4 mg - Objective Vital Signs: Vital Signs Temperature 98 F 10/03/19 17:11 Pulse Rate 79 03/03/20 17:11 Respiratory Rate 20 10/03/19 17:11 Blood Pressure 96/67 10/03/19 17:11 O2 Sat by Pulse Oximetry (%) 95 10/02/19 21:00 Constitutional: Yes: Obese Cardiovascular: Yes: Regular Rate and Rhythm, S1, S2 Respiratory: Yes: CTA Bilaterally Gastrointestinal: Yes: Normal Bowel Sounds, Soft, Tenderness, Other (MILD BILATERAL ABDOMINAL TENDERNESS) Edema: Yes Labs: CBC, BMP 10/03/19 07:40 10/03/19 07:40 INR, PTT INR 1.36 (0.83-1.09) H 10/01/19 08:00 Assessment/Plan ABDOMINAL PAIN SYNDROME IMPROVED SIGMOID DIVERTICULITIS [id number] RESOLVED RENAL MASS QUINOLONE ALLERGY CONTINUE EMPIRIC ZOSYN/ FLAGYL SURGICAL/UROLOGY FOLLOW UP
--- NOTE | 2019-10-04 00:16 | PN ---
Teaching Attending Note Name of Resident: Eddie Wolff ATTENDING PHYSICIAN STATEMENT I saw and evaluated the patient. I reviewed the resident's note and discussed the case with the resident. I agree with the resident's findings and plan as documented. SUBJECTIVE: Patient seen and examined at bedside, still c/o of pain but less severe, now OOB to chair, diet advanced to soft, VSS, WBC count trending down. OBJECTIVE: GA comfortable, AAox3, morbidly obese, sitting in chair HEENT NC/AT, EOMI, neck supple Chest distant BS due to body habitus, CTAB CVS S1, S2+, RRR Abd morbidly obese, RLQ/LLQ pain no guarding, BS distant Ext No LE edema Vital Signs - 24 hr 10/03/19 10/03/19 10/03/19 02:29 06:00 09:43 Temperature 97.8 F 98.2 F 98.2 F Pulse Rate 62 62 60 Respiratory 20 20 18 Rate Blood Pressure 91/53 L 107/64 130/80 O2 Sat by Pulse Oximetry (%) 10/03/19 10/03/19 10/03/19 14:00 17:11 21:00 Temperature 98.2 F 98 F Pulse Rate 72 79 95 H Respiratory 18 20 20 Rate Blood Pressure 102/52 L 96/67 128/78 O2 Sat by Pulse 99 Oximetry (%) Microbiology 09/30/19 19:20 Blood - Peripheral Venous Blood Culture - Preliminary NO GROWTH OBTAINED AFTER 72 HOURS, INCUBATION TO CONTINUE FOR 2 DAYS. 09/30/19 19:30 Blood - Peripheral Venous Blood Culture - Preliminary NO GROWTH OBTAINED AFTER 72 HOURS, INCUBATION TO CONTINUE FOR 2 DAYS. 10/02/19 09:20 Nares - Mrsa Screen - Right MRSA Screen - Final NO MRSA ISOLATED 10/02/19 09:20 Nares - Mrsa Screen - Left MRSA Screen - Final NO MRSA ISOLATED 09/30/19 15:30 Urine - Urine Clean Catch Urine Culture - Final NO GROWTH OBTAINED Laboratory Results - last 24 hr 10/03/19 10/03/19 07:40 07:40 WBC 8.0 RBC 3.45 L Hgb 10.3 L Hct 30.1 L MCV 87.2 MCH 29.9 MCHC 34.3 RDW 13.3 Plt Count 213 MPV 8.4 Absolute Neuts (auto) 6.8 Neutrophils % 84.9 H Lymphocytes % 6.2 L D Monocytes % 5.3 Eosinophils % 3.2 Basophils % 0.4 Nucleated RBC % 0 Sodium 134 L Potassium 3.3 L Chloride 101 Carbon Dioxide 26 Anion Gap 7 L BUN 11.5 Creatinine 1.0 Est GFR (CKD-EPI)AfAm 73.97 Est GFR (CKD-EPI)NonAf 63.82 Random Glucose 124 H Calcium 7.6 L Phosphorus 2.2 L Magnesium 2.2 Total Bilirubin 0.9 AST 21 ALT 15 Alkaline Phosphatase 66 Total Protein 5.4 L Albumin 2.3 L Home Medications Medication Instructions Recorded Tapentadol Hydrochloride [Nucynta 100 mg PO QID 07/17/14 -] Famotidine [Pepcid] 20 mg PO PRN 02/07/18 Tizanidine HCl [Zanaflex (Nf)] 4 mg PO BID 02/07/18 Levocetirizine Dihydrochloride 5 mg PO DAILY 09/30/19 [Xyzal] Current Medications Generic Name Dose Route Start Last Admin Trade Name Freq PRN Reason Stop Dose Admin Acetaminophen 1,000 mg 10/03/19 17:56 Tylenol - PO Q6H PRN Pain Level 4 - 10 Calcium Carbonate/Cholecalciferol 2 tab 10/03/19 11:15 10/03/19 11:56 Os-Patrick 500+D - PO 2 tab DAILY [facility] Administration Enoxaparin Sodium 30 mg 09/30/19 22:00 10/03/19 21:36 Lovenox - SQ 30 mg BID [facility] Administration Metronidazole 500 mg in 100 mls @ 100 mls/hr 09/30/19 10:00 10/03/19 18:43 Flagyl 500mg Premixed Ivpb - IVPB 100 mls/hr Q8H-IV [facility] Administration Famotidine/Sodium Chloride 20 mg in 50 mls @ 100 mls/hr 09/30/19 22:00 21:39 Pepcid 20 Mg Premixed Ivpb - IVPB 100 mls/hr BID [facility] Administration Piperacillin Sod/Tazobactam 100 mls @ 200 mls/hr 09/30/19 16:00 10/03/19 21: 36 Sod 4.5 gm/ Dextrose IVPB 200 mls/hr Q6H-IV [facility] Administration Protocol Potassium Chloride/Sodium Chloride 20 meq in 1,000 mls @ 75 mls/hr 10/03/19 18 :00 03/03/20 18:22 1/2ns+20meq Kcl IV 75 mls/hr ASDIR [facility] Administration Ketorolac Tromethamine 10 mg 10/02/19 12:00 10/03/19 23:10 Toradol PO 10/07/19 11:59 10 mg Q6HPO [facility] Administration Lactobacillus Acidophilus 1 tab 10/04/19 10:00 Bacid - PO DAILY [facility] Loratadine 10 mg 10/03/19 15:45 10/03/19 15:50 Claritin - PO 10 mg DAILY [facility] Administration Tapentadol 100 mg 10/03/19 10:00 10/03/19 21:36 Nucynta - PO 100 mg QID [facility] Administration Tizanidine HCl 4 mg 10/03/19 10:00 10/03/19 21:38 Tizanidine Hcl PO 4 mg BID [facility] Administration ASSESSMENT AND PLAN: 54 F h/o morbid obesity, fibromyalgia, diverticulosis, chronic back pain admitted s/p lap david and was found to have mid-sigmoid diverticulitis. Acute sigmoid diverticulitis Pain improving, WBC count trending down, afebrile Diet advanced from clears to soft diet, if pain persists or worsens DC soft diet Cont. Vanc/Zosyn/Flagyl ID consult L kidney mass Patient refusing MRI Follow up as OP Fibromyalgia, chronic back and neck pain Continue Nucynta, tizanidine Morbid obesity with BMI 52.1 Counseled patient on diet, exercise and weight loss Patient may be considered for bariatric surgery to be discussed with PCP as OP Med-surg Lovenox DVT ppx
[2019-10-04] MEDS ORDERED: DEXTROSE 5%-WATER 100 ML IVPB ONE ×2 (02:34→08:50)
[2019-10-04] MEDS ORDERED: PIPERACILLIN/TAZOBACTAM 4.5 GM VIAL IVPB ONE ×2 (02:34→08:50)
[2019-10-04] MEDS: PIPERACILLIN/TAZOB 4.5 GM 4.5 GM in DEXTROSE 5%-WATER 100 ML IVPB SCH ×2 (02:48→08:55)
[2019-10-04 05:28] VITALS: TEMP 98.5
[2019-10-04] MEDS: KETOROLAC TROMETHAMINE 10 MG TABLET PO SCH ×2 (05:52→11:28)
--- NOTE | 2019-10-04 07:30 | PN ---
Physical Exam: SUBJECTIVE: Patient seen and examined OBJECTIVE: Vital Signs Period Temp Pulse Resp BP Sys/Kennedy Pulse Ox Last 24 Hr 98 F-98.5 F 60-95 18-20 96-130/52-80 99 GENERAL: The patient is awake, alert, and fully oriented, in no acute distress. HEAD: Normal with no signs of trauma. EYES: PERRL, extraocular movements intact, sclera anicteric, conjunctiva clear. No ptosis. ENT: Ears normal, nares patent, oropharynx clear without exudates, moist mucous membranes. NECK: Trachea midline, full range of motion, supple. LUNGS: Breath sounds equal, clear to auscultation bilaterally, no wheezes, no crackles, no accessory muscle use. HEART: Regular rate and rhythm, S1, S2 without murmur, rub or gallop. ABDOMEN: Soft, nontender, nondistended, normoactive bowel sounds, no guarding, no rebound, no hepatosplenomegaly, no masses. EXTREMITIES: 2+ pulses, warm, well-perfused, no edema. NEUROLOGICAL: Cranial nerves II through XII grossly intact. Normal speech, gait not observed. PSYCH: Normal mood, normal affect. SKIN: Warm, dry, normal turgor, no rashes or lesions noted Laboratory Results - last 24 hr 10/03/19 10/03/19 07:40 07:40 WBC 8.0 RBC 3.45 L Hgb 10.3 L Hct 30.1 L MCV 87.2 MCH 29.9 MCHC 34.3 RDW 13.3 Plt Count 213 MPV 8.4 Absolute Neuts (auto) 6.8 Neutrophils % 84.9 H Lymphocytes % 6.2 L D Monocytes % 5.3 Eosinophils % 3.2 Basophils % 0.4 Nucleated RBC % 0 Sodium 134 L Potassium 3.3 L Chloride 101 Carbon Dioxide 26 Anion Gap 7 L BUN 11.5 Creatinine 1.0 Est GFR (CKD-EPI)AfAm 73.97 Est GFR (CKD-EPI)NonAf 63.82 Random Glucose 124 H Calcium 7.6 L Phosphorus 2.2 L Magnesium 2.2 Total Bilirubin 0.9 AST 21 ALT 15 Alkaline Phosphatase 66 Total Protein 5.4 L Albumin 2.3 L Active Medications Generic Name Dose Route Start Last Admin Trade Name Freq PRN Reason Stop Dose Admin Acetaminophen 1,000 mg 10/03/19 17:56 Tylenol - PO Q6H PRN Pain Level 4 - 10 Calcium Carbonate/Cholecalciferol 2 tab 10/03/19 11:15 10/03/19 11:56 Os-Patrick 500+D - PO 2 tab DAILY [facility] Administration Enoxaparin Sodium 30 mg 09/30/19 22:00 10/03/19 21:36 Lovenox - SQ 30 mg BID [facility] Administration Metronidazole 500 mg in 100 mls @ 100 mls/hr 09/30/19 10:00 10/04/19 02:48 Flagyl 500mg Premixed Ivpb - IVPB 100 mls/hr Q8H-IV [facility] Administration Famotidine/Sodium Chloride 20 mg in 50 mls @ 100 mls/hr 09/30/19 22:00 21:39 Pepcid 20 Mg Premixed Ivpb - IVPB 100 mls/hr BID [facility] Administration Piperacillin Sod/Tazobactam 100 mls @ 200 mls/hr 09/30/19 16:00 10/04/19 02: 48 Sod 4.5 gm/ Dextrose IVPB 200 mls/hr Q6H-IV [facility] Administration Protocol Potassium Chloride/Sodium Chloride 20 meq in 1,000 mls @ 75 mls/hr 10/03/19 18 :00 10/03/19 18:22 1/2ns+20meq Kcl IV 75 mls/hr ASDIR [facility] Administration Ketorolac Tromethamine 10 mg 10/02/19 12:00 10/04/19 05:52 Toradol PO 10/07/19 11:59 10 mg Q6HPO [facility] Administration Lactobacillus Acidophilus 1 tab 10/04/19 10:00 Bacid - PO DAILY [facility] Loratadine 10 mg 10/03/19 15:45 10/03/19 15:50 Claritin - PO 10 mg DAILY [facility] Administration Tapentadol 100 mg 10/03/19 10:00 10/03/19 21:36 Nucynta - PO 100 mg QID [facility] Administration Tizanidine HCl 4 mg 10/03/19 10:00 10/03/19 21:38 Tizanidine Hcl PO 4 mg BID [facility] Administration ASSESSMENT/PLAN: ATTENDING PHYSICIAN STATEMENT I saw and evaluated the patient. I reviewed the resident's note and discussed the case with the resident. I agree with the resident's findings and plan as documented. SUBJECTIVE: OBJECTIVE: ASSESSMENT AND PLAN:
[2019-10-04 07:41] LABS: BASO % 0.5 % (0-2.0); EOS % 1.6 % (0-4.5); HEMATOCRIT 32.3 % (32.4-45.2); HEMOGLOBIN 11.1 GM/dL (10.7-15.3); LYMPH % 9.8 % (8-40); MCH 29.7 pg (25.7-33.7); MCHC 34.3 g/dl (32.0-36.0); MEAN CELL VOLUME 86.6 fl (80-96); MEAN PLT VOLUME 7.6 fl (7.5-11.1); MONO % 12.9 % (3.8-10.2); NEUT % 75.2 % (42.8-82.8); PLATELET COUNT 220 K/MM3 (134-434); RBC 3.73 M/mm3 (3.60-5.2); RDW 13.3 % (11.6-15.6); WHITE BLOOD COUNT 5.1 K/mm3 (4.0-10.0)
[2019-10-04 08:10] LABS: ALBUMIN 2.3 g/dl (3.4-5.0); BILIRUBIN,TOTAL 0.6 mg/dL (0.2-1); BLOOD UREA NITROGEN 8.2 mg/dL (7-18); CALCIUM 7.9 mg/dL (8.5-10.1); CREATININE 0.9 mg/dL (0.55-1.3); POTASSIUM 3.3 mmol/L (3.5-5.1); TOT PROT 5.4 g/dl (6.4-8.2)
[2019-10-04] MEDS: KCL 10 MEQ IVPB 10 MEQ/100 ML INFUS.BAG IVPB SCH ×2 (09:49→11:02)
[2019-10-04 09:53] VITALS: BP 125/66; PULSE 79
[2019-10-04] MEDS ORDERED: LACTOBACILLUS ACIDOPHILUS 1 TABLET PO SCH (10:00)
[2019-10-04] MEDS ORDERED: PT OWN MED DRAWER 7, Y5N ONE (10:06)
[2019-10-04] MEDS: TAPENTADOL HYDROCHLORIDE 50 MG TABLET PO SCH (10:07)
[2019-10-04] MEDS: CALCIUM 500MG/VIT-D 200 UNITS COMBO TABLET (FP) PO SCH (10:07)
[2019-10-04] MEDS: TIZANIDINE HCL 4 MG TABLET PO SCH (10:08)
[2019-10-04] MEDS: LORATADINE 10 MG TABLET PO SCH (10:08)
[2019-10-04] MEDS: ENOXAPARIN NA (PORCINE) 30 MG/0.3 ML DISP.SYRIN SQ SCH (10:08)
[2019-10-04] MEDS ORDERED: POTASSIUM CHLORIDE TABS 20 MEQ TABLET.ER (FP) PO ONE (10:38)
--- NOTE | 2019-10-04 10:51 | PN ---
Progress Note, Physician History of Present Illness: AWAKE,ALERT SEATED IN BED TOLERATING SOFT DIET REPORTS LESS ABDOMINAL PAIN NO N/V + BM AFEBRILE WBC WNL BC NO GROWTH - Current Medication List Current Medications: Active Medications Acetaminophen (Tylenol -) 1,000 mg PO Q6H PRN PRN Reason: Pain Level 4 - 10 Amoxicillin/Clavulanate Potassium (Augmentin - 875mg Tablet) 1 tab PO BID@0800, 1730 [facility] Calcium Carbonate/Cholecalciferol (Os-Patrick 500+D -) 2 tab PO DAILY [facility] Last Admin: 10/04/19 10:07 Dose: 2 tab Enoxaparin Sodium (Lovenox -) 30 mg SQ BID [facility] Last Admin: 10/04/19 10:08 Dose: 30 mg Metronidazole (Flagyl 500mg Premixed Ivpb -) 500 mg in 100 mls @ 100 mls/hr IVPB Q8H-IV [facility] Last Admin: 10/04/19 02:48 Dose: 100 mls/hr Famotidine/Sodium Chloride (Pepcid 20 Mg Premixed Ivpb -) 20 mg in 50 mls @ 100 mls/hr IVPB BID [facility] Last Admin: 10/03/19 21:39 Dose: 100 mls/hr Piperacillin Sod/Tazobactam (Sod 4.5 gm/ Dextrose) 100 mls @ 200 mls/hr IVPB Q6H-IV [facility]; Protocol Last Admin: 10/04/19 08:55 Dose: 200 mls/hr Potassium Chloride/Sodium Chloride (1/2ns+20meq Kcl) 20 meq in 1,000 mls @ 75 mls/hr IV ASDIR [facility] Last Admin: 10/03/19 18:22 Dose: 75 mls/hr Ketorolac Tromethamine (Toradol) 10 mg PO Q6HPO [facility] Stop: 10/07/19 11:59 Last Admin: 10/04/19 05:52 Dose: 10 mg Lactobacillus Acidophilus (Bacid -) 1 tab PO DAILY [facility] Last Admin: 10/04/19 10:08 Dose: 1 tab Loratadine (Claritin -) 10 mg PO DAILY [facility] Last Admin: 10/04/19 10:08 Dose: 10 mg Tapentadol (Nucynta -) 100 mg PO QID [facility] Last Admin: 10/04/19 10:07 Dose: 100 mg Tizanidine HCl (Tizanidine Hcl) 4 mg PO BID [facility] Last Admin: 10/04/19 10:08 Dose: 4 mg - Objective Vital Signs: Vital Signs Temperature 98.5 F 10/04/19 08:36 Pulse Rate 79 10/04/19 08:36 Respiratory Rate 18 10/04/19 08:36 Blood Pressure 125/66 10/04/19 08:36 O2 Sat by Pulse Oximetry (%) 99 10/03/19 21:00 Constitutional: Yes: No Distress, Obese Cardiovascular: Yes: Regular Rate and Rhythm, S1, S2 Respiratory: Yes: CTA Bilaterally Gastrointestinal: Yes: Normal Bowel Sounds, Soft, Abdomen, Obese. No: Tenderness Labs: CBC, BMP 10/04/19 07:10 10/04/19 07:10 INR, PTT INR 1.36 (0.83-1.09) H 10/01/19 08:00 Assessment/Plan ABDOMINAL PAIN SYNDROME IMPROVED SIGMOID DIVERTICULITIS [id number] RESOLVED RENAL MASS QUINOLONE ALLERGY SUBSTITUTE PO AUGMENTIN 875 MG BID X 7D OUTPATIENT MEDICINE/ F/U
[2019-10-04] MEDS: FAMOTIDINE 20 MG/50 ML IVPB 20 MG/50 ML MG IVPB SCH (10:52)
--- NOTE | 2019-10-04 11:38 | DS ---
Physical Exam: SUBJECTIVE: Patient seen and examined tolerating diet, no N/V . can go home on 7 dayscourse of Augmentine 875 mg twice daily. WBC WNL , no fever no chills. OBJECTIVE: Vital Signs Period Temp Pulse Resp BP Sys/Kennedy Pulse Ox Last 24 Hr 98 F-98.5 F 72-95 18-20 96-128/52-78 99 PHYSICAL EXAM GENERAL: AAOx3 in NAD HEAD: NC/AT EYES: EOMI, Conjunctiva clear, sclera anicteric ENT: moist mucous membrane NECK: Supple, no JVD LUNGS: CTA B/L, no crackles no wheezing no accessory muscle use. HEART: RRR, normal s1, s2, murmur no M/R/G ABDOMEN: obese Soft, Bilateral Tenderness , +BS 4 Q, no CVA Tenderness LOWER EXTREMITIES: no edema, +2DP pulse, NEUROLOGICAL: No focal deficit. Normal speech. gait not observed. PSYCHIATRIC: Cooperative. Good eye contact. Appropriate mood and affect. SKIN: Warm, dry, LABS Laboratory Results - last 24 hr 10/04/19 10/04/19 07:10 07:10 WBC 5.1 RBC 3.73 Hgb 11.1 Hct 32.3 L MCV 86.6 MCH 29.7 MCHC 34.3 RDW 13.3 Plt Count 220 MPV 7.6 Absolute Neuts (auto) 3.8 Neutrophils % 75.2 Lymphocytes % 9.8 D Monocytes % 12.9 H D Eosinophils % 1.6 Basophils % 0.5 Nucleated RBC % 0 Sodium 139 Potassium 3.3 L Chloride 106 Carbon Dioxide 26 Anion Gap 7 L BUN 8.2 Creatinine 0.9 Est GFR (CKD-EPI)AfAm 84.01 Est GFR (CKD-EPI)NonAf 72.49 Random Glucose 99 Calcium 7.9 L Total Bilirubin 0.6 AST 17 ALT 15 Alkaline Phosphatase 65 Total Protein 5.4 L Albumin 2.3 L CBC, BMP 10/04/19 07:10 10/04/19 07:10 HOSPITAL COURSE: Date of Admission:09/30/19 Date of Discharge: 10/04/19 54F hx of fibromyalgia, chronic back pain, s/p david, presenting with right sided abdominal and flank pain was found to have sigmoid diverticulotis # Mild sigmoid diverticulitis * CT scan reviowed * pain is improving will start her in clear liquid diet * COnt abx per ID Zosyn and flagyl , will dc home on 7 days course of Augmentine 875 BID * WBC trendng down and abdominal pain improving * dc iV fluids * pain control * Colonoscopy out pt 6-8 weeks after dc * avoid constipation, # Mass on left kidney * founded on CT sca, consult urology , pt refuse MRI , has family history of cyst per pt , follow up out pt # Periumbilical hernia chronic follow up out pt # Hypocalcemia 6.9 corrected 8.t , replinished # Anemia normocytic normochromic , follow up out pt no active bleeding , monitor H/H daily # Chronic low back pain cont home meds Tizanidine and Nucynta and ketorlac # Morbid obesity BMO 52 educated about life style change and diet modification # Full code # Dispo:home Minutes to complete discharge: 45 Discharge Summary Problems reviewed: Yes Reason For Visit: ABDOMINAL PAIN Current Active Problems Chronic low back pain (Chronic) Fibromyalgia (Chronic) Mass of left kidney (Chronic) Morbid obesity with body mass index of 50.0-59.9 in adult (Chronic) Condition: Stable - Instructions Diet, Activity, Other Instructions: you presented to the hospital due to abdominal pain , you were found to have mild diverticulitis and you were treated with antibiotics and symptoms has im proved. You will be send home with 7 more days of antibiotics Augmentine 875 mg twice daily please take it with probiotics and food. On images you were found to have 2 cm lower lobe kidney mass please follow up with MRI as out pt and follow up with uorologist Dr Lawson Levin You need to follow up with Gastroenterology Doctor Anibal Castle in 6 weeks to get colonoscopy please follow up with primary care physician within one week Please resume all other home medication as before admission. calcium was added to youe medication please take aone tablet daily and repeat level with your primary care physician. if you develop fever , chills, chest pain , abdominal pain , nausea or vomiting or your symptoms worsen please return to emergency room. Referrals: Dion Castle DO [Staff Physician] - 1 Month Aramis Narvaez MD [Staff Physician] - 1 Week Disposition: HOME - Home Medications Comprehensive Discharge Medication List: Ambulatory Orders Tapentadol Hydrochloride [Nucynta -] 100 mg PO QID 07/17/14 Famotidine [Pepcid] 20 mg PO PRN 02/07/18 Tizanidine HCl [Zanaflex (Nf) -] 4 mg PO BID 02/07/18 Levocetirizine Dihydrochloride [Xyzal] 5 mg PO DAILY 09/30/19 Acetaminophen [Tylenol .Extra-Strength -] 1,000 mg PO Q6H PRN tablet 10/04/19 Amox-Tr/K Cl [Augmentin - 875Mg Tablet] 1 tab PO BID #14 tablet 10/04/19 Calcium 500Mg/Vit-D 200 Units [Os-Patrick 500+D -] 2 tab PO DAILY #30 tab 10/04/19 Ketorolac Tromethamine [Toradol -] 10 mg PO Q6HPO tablet 10/04/19 Lactobacillus Acidophilus [Bacid -] 1 tab PO DAILY #15 tab 10/04/19 This patient is new to me today: No Emergency Visit: Yes ED Registration Date: 09/30/19 Care time: The patient presented to the Emergency Department on the above date and was hospitalized for further evaluation of their emergent condition. Critical Care patient: No - Discharge Referral Referred to [facility] Med [facility] No ATTENDING PHYSICIAN STATEMENT I saw and evaluated the patient. I reviewed the resident's note and discussed the case with the resident. I agree with the resident's findings and plan as documented. SUBJECTIVE: OBJECTIVE: ASSESSMENT AND PLAN:
--- NOTE | 2019-10-04 16:58 | PN ---
Teaching Attending Note Name of Resident: Eddie Wolff ATTENDING PHYSICIAN STATEMENT I saw and evaluated the patient. I reviewed the resident's note and discussed the case with the resident. I agree with the resident's findings and plan as documented. SUBJECTIVE: Patient seen and examined at bedside, still c/o of pain but less severe, now OOB to chair, diet advanced to soft, VSS, WBC count trending down. OBJECTIVE: GA comfortable, AAox3, morbidly obese, sitting in chair HEENT NC/AT, EOMI, neck supple Chest distant BS due to body habitus, CTAB CVS S1, S2+, RRR Abd morbidly obese, RLQ/LLQ pain no guarding, BS distant, no CVA tenderness Ext No LE edema Vital Signs - 24 hr 10/03/19 10/03/19 10/04/19 17:11 21:00 01:00 Temperature 98 F Pulse Rate 79 95 H 72 Respiratory 20 20 20 Rate Blood Pressure 96/67 128/78 101/68 O2 Sat by Pulse 99 Oximetry (%) 10/04/19 10/04/19 05:25 08:36 Temperature 98.5 F 98.5 F Pulse Rate 78 79 Respiratory 20 18 Rate Blood Pressure 117/71 125/66 O2 Sat by Pulse Oximetry (%) Microbiology 09/30/19 19:20 Blood - Peripheral Venous Blood Culture - Preliminary NO GROWTH OBTAINED AFTER 72 HOURS, INCUBATION TO CONTINUE FOR 2 DAYS. 09/30/19 19:30 Blood - Peripheral Venous Blood Culture - Preliminary NO GROWTH OBTAINED AFTER 72 HOURS, INCUBATION TO CONTINUE FOR 2 DAYS. 10/02/19 09:20 Nares - Mrsa Screen - Right MRSA Screen - Final NO MRSA ISOLATED 10/02/19 09:20 Nares - Mrsa Screen - Left MRSA Screen - Final NO MRSA ISOLATED 09/30/19 15:30 Urine - Urine Clean Catch Urine Culture - Final NO GROWTH OBTAINED Laboratory Results - last 24 hr 10/04/19 10/04/19 07:10 07:10 WBC 5.1 RBC 3.73 Hgb 11.1 Hct 32.3 L MCV 86.6 MCH 29.7 MCHC 34.3 RDW 13.3 Plt Count 220 MPV 7.6 Absolute Neuts (auto) 3.8 Neutrophils % 75.2 Lymphocytes % 9.8 D Monocytes % 12.9 H D Eosinophils % 1.6 Basophils % 0.5 Nucleated RBC % 0 Sodium 139 Potassium 3.3 L Chloride 106 Carbon Dioxide 26 Anion Gap 7 L BUN 8.2 Creatinine 0.9 Est GFR (CKD-EPI)AfAm 84.01 Est GFR (CKD-EPI)NonAf 72.49 Random Glucose 99 Calcium 7.9 L Total Bilirubin 0.6 AST 17 ALT 15 Alkaline Phosphatase 65 Total Protein 5.4 L Albumin 2.3 L Home Medications Medication Instructions Recorded Tapentadol Hydrochloride [Nucynta 100 mg PO QID 07/17/14 -] Famotidine [Pepcid] 20 mg PO PRN 02/07/18 Tizanidine HCl [Zanaflex (Nf) -] 4 mg PO BID 02/07/18 Levocetirizine Dihydrochloride 5 mg PO DAILY 09/30/19 [Xyzal] Acetaminophen [Tylenol 1,000 mg PO Q6H PRN tablet 10/04/19 .Extra-Strength -] Amox-Tr/K Cl [Augmentin - 875Mg 1 tab PO BID #14 tablet 10/04/19 Tablet] Calcium 500Mg/Vit-D 200 Units 2 tab PO DAILY #30 tab 10/04/19 [Os-Patrick 500+D -] Ketorolac Tromethamine [Toradol -] 10 mg PO Q6HPO tablet 10/04/19 Lactobacillus Acidophilus [Bacid -] 1 tab PO DAILY #15 tab 10/04/19 ASSESSMENT AND PLAN: 54 F h/o morbid obesity, fibromyalgia, diverticulosis, chronic back pain admitted s/p lap david and was found to have mid-sigmoid diverticulitis. Acute sigmoid diverticulitis Pain improving, WBC count trending down, afebrile tolerating diet, stable for DC Augmentin as outpatient ID follow up L kidney mass Patient refused MRI Patient advised to follow up with Urology clinic for further workup of mass was given referral to see Dr. Narvaez (Urology). Fibromyalgia, chronic back and neck pain Continue Nucynta, tizanidine Morbid obesity with BMI 52.1 Counseled patient on diet, exercise and weight loss Patient may be considered for bariatric surgery to be discussed with PCP as OP Dispo: DC Home with appropriate clinic follow ups, please see DC summary instructions.
[2019-10-04] MEDS ORDERED: AMOX TR/POT CLAV 875MG/125MG TABLETS (FP) PO SCH (17:30)
== END 2019-10-04 13:42 | disposition home or self-care (01) | DRG 392 ==
LOC: JER 01:44 → JERBED 08:01 → J8W 10:44
PROVIDERS: ADMIT Internal Medicine
DX: K57.32 Diverticulitis of large intestine without perforation or abscess without bleeding (principal); Z68.43 Body mass index [BMI] 50.0-59.9, adult; E66.01 Morbid (severe) obesity due to excess calories; N28.89 Other specified disorders of kidney and ureter; M79.7 Fibromyalgia; K42.9 Umbilical hernia without obstruction or gangrene; D64.9 Anemia, unspecified; M54.5 Low back pain; D72.829 Elevated white blood cell count, unspecified; E83.51 Hypocalcemia; K21.9 Gastro-esophageal reflux disease without esophagitis; R10.32 Left lower quadrant pain
CPT/HCPCS: 36415; 74176-TC; 80053; 81003; 83690; 83735; 84100; 85025; 85610; 85730; 86850; 86900; 86901; 87040; 87081; 87086; 99285-25; J0131; J3480